=== PATIENT | female | born 1940 | race Caucasian/White ===

== ENCOUNTER 2017-03-02 15:07 | Outpatient (CLI) | payer MEDICARE, OTHER ==
[2017-03-02 11:46] LABS: BASOPHILS 0.1 % (0-2); EOSINOPHILS 0.1 % (0-7); HEMATOCRIT 38.2 % (36.0-48.0); HEMOGLOBIN 12.9 g/dL (12-16); IMMATURE GRANULOCYTES 0.5 % (0-5); LYMPHOCYTES 12.9 % (15-50); MCH 30.9 pg (26.0-34.0); MCHC 33.8 g/dL (31.0-37.0); MCV 91.4 fL (80.0-100.0); MEAN PLATELET VOLUME 8.9 fL (7.4-10.4); MONOCYTES 5.9 % (2-11); NEUTROPHILS 80.5 % (40-80); PLATELET COUNT 690 10x3/uL (130-400); RBC 4.18 10x6/uL (4.00-5.40); RDW 12.5 % (11.5-14.5); WBC 14.9 10x3/uL (4.8-10.8)
[2017-03-02 12:09] LABS: ALBUMIN 3.4 g/dL (3.4-5.0); ANION GAP 19.7 mmol/L (8-16); BILIRUBIN - TOTAL 0.68 mg/dL (0.2-1.3); CALCIUM 10.2 mg/dL (8.5-10.1); CARBON DIOXIDE 21.5 mmol/L (21.0-32.0); CREATININE - SERUM 1.4 mg/dL (0.6-1.3); MAGNESIUM - SERUM 1.9 mg/dL (1.8-2.4); POTASSIUM - SERUM 4.2 mmol/L (3.5-5.1); PROTEIN - SERUM 8.2 g/dL (6.4-8.2)
[2017-03-02 12:15] LABS: APPEARANCE HAZY (CLEAR); COLOR DK YELLOW (YELLOW); LEUKOCYTE ESTERASE TRACE (NEGATIVE); NITRITE NEGATIVE (NEGATIVE); SPECIFIC GRAVITY 1.025 (1.005-1.020)
[2017-03-02 12:16] LABS: BACTERIA FEW /hpf (NONE SEEN); BILIRUBIN NEGATIVE (NEGATIVE); EPITHELIAL CELLS RARE /hpf (0-5); GLUCOSE NEGATIVE (NEGATIVE); KETONE NEGATIVE (NEGATIVE); PROTEIN TRACE mg/dL (NEGATIVE); RED CELLS - URINE 0-5 /hpf (0-5); UROBILINOGEN NORMAL (NORMAL); WHITE CELLS - URINE 0-5 /hpf (0-5)
[2017-03-02 12:19] LABS: GRANULAR CAST RARE /lpf (NONE SEEN); HYALINE CAST OCC /lpf (NONE SEEN)
--- NOTE | 2017-03-02 16:40 | NUR ---
PATIENT VERY UNHAPPY ABOUT PLAN TO GET AN ENEMA, STATES DID NOT KNOW WHAT GETTING AN ENEMA WAS UNTIL HER EXPLAINED IT TO HER A FEW MINUTES AGO. IS HESITANTLY AGREEABLE TO THE PROCEDURE. SOAP SUDS ENEMA GIVEN, PATIENT TAKES SMALL AMOUNT AND IS UNABLE TO HOLD MUCH IN AND QUICKLY EXPELS IT ON TOILET WITH SMALL AMOUNT SOFT STOOL
[2017-03-02 16:45] VITALS: BP 116/65; Ht 144.8 cm
[2017-03-02] MEDS ORDERED: TRESIBA FL100 UNIT/1 SC (16:48)
[2017-03-02] MEDS ORDERED: GLIMEPIRIDE4 MG PO (16:48)
[2017-03-02] MEDS ORDERED: NOVOLOG100 U/M1 SC (16:48)
[2017-03-02] MEDS ORDERED: DITROPAN X5 MG/BOTTL PO (16:49)
[2017-03-02] MEDS ORDERED: LOPID600 MG PO (16:50)
[2017-03-02] MEDS ORDERED: CYMBALTA60 MG PO (16:50)
[2017-03-02] MEDS ORDERED: ZETIA10 MG PO (16:50)
[2017-03-02] MEDS ORDERED: ULORIC40 MG PO ×2 (16:51→17:00)
[2017-03-02] MEDS ORDERED: NEURONTIN 400400 MG PO (17:00)
[2017-03-02] MEDS ORDERED: VASOTEC10 MG PO (17:11)
[2017-03-02] MEDS ORDERED: LIPITOR20 MG PO (17:12)
[2017-03-02] MEDS ORDERED: JANUVIA100 MG PO (17:12)
[2017-03-02] MEDS ORDERED: HYDROCODON-ACE1 EAC6 PO (17:13)
--- NOTE | 2017-03-02 17:45 | NUR ---
PATIENT HAS ALLOWED ONLY SMALL AMOUNTS OF ENEMA AT A TIME AND HAS HAD FREQUENT SMALL AMOUNTS OF SOFT STOOLS AT A TIME AND HAS HAD A TOTAL OF A MODERATE SIZED BOWEL MOVEMENT. PATIENT AGREEABLE TO ONE MORE ROUND OF SMALL AMOUNT OF ENEMA, PATIENT HOLDS THIS ONE IN FOR APPROX 5 MINUTES BEFORE WALKING TO BATHROOM AND RELEASING CLEAR YELLOW LIQUID WITH MINIMAL SMALL FLECKS. RIGHT AC PIV DC'D WITH TIP INTACT. ABDOMEN SOFT AND LESS DISTENDED. SPOUSE REPORTS THAT PATIENT ALWAYS HAS A SLIGHTLY DISTENDED ABDOMEN
--- NOTE | 2017-03-02 18:00 | NUR ---
PATIENT WHEELED TO EMERGENCY ENTRANCE TO MEET SPOUSE'S CAR, PATIENT DISCHARGED HOME WITH DC INSTRUCTIONS, PATIENT EXPRESSES APPRECIATION FOR CARE
== END 2017-03-02 18:00 | disposition home or self-care (01) ==
LOC: D.ER 15:07
PROVIDERS: Emergency Medicine
DX: R10.9 Unspecified abdominal pain (principal); K59.00 Constipation, unspecified; Z01.812 Encounter for preprocedural laboratory examination

== ENCOUNTER 2017-03-17 10:37 | Inpatient (IN) | payer MEDICARE, OTHER ==
[~2017-03-17] VITALS: Ht 144.8 cm; Wt 60.3 kg
[~2017-03-17 10:37] MED LIST: CYMBALTA60 MG PO; DITROPAN X5 MG/BOTTL PO; GLIMEPIRIDE4 MG PO; HYDROCODON-ACE1 EAC6 PO; JANUVIA100 MG PO; LIPITOR20 MG PO; LOPID600 MG PO; NEURONTIN 400400 MG PO; NOVOLOG100 U/M1 SC; TRESIBA FL100 UNIT/1 SC; ULORIC40 MG PO; VASOTEC10 MG PO; ZETIA10 MG PO
[2017-03-17 11:29] LABS: BASOPHILS 0.2 % (0-2); EOSINOPHILS 0.3 % (0-7); HEMATOCRIT 35.5 % (36.0-48.0); HEMOGLOBIN 11.3 g/dL (12-16); IMMATURE GRANULOCYTES 0.3 % (0-5); LYMPHOCYTES 8.8 % (15-50); MCHC 31.8 g/dL (31.0-37.0); MCV 94.2 fL (80.0-100.0); MEAN PLATELET VOLUME 8.7 fL (7.4-10.4); MONOCYTES 5.3 % (2-11); NEUTROPHILS 85.1 % (40-80); PLATELET COUNT 530 10x3/uL (130-400); RBC 3.77 10x6/uL (4.00-5.40); RDW 12.9 % (11.5-14.5); WBC 12.8 10x3/uL (4.8-10.8)
[2017-03-17 11:56] LABS: ALBUMIN 2.6 g/dL (3.4-5.0); BILIRUBIN - TOTAL 0.57 mg/dL (0.2-1.3); CALCIUM 8.9 mg/dL (8.5-10.1); CARBON DIOXIDE 28.5 mmol/L (21.0-32.0); CREATININE - SERUM 1.3 mg/dL (0.6-1.3); POTASSIUM - SERUM 4.5 mmol/L (3.5-5.1)
[2017-03-17 15:34] LABS: APPEARANCE HAZY (CLEAR); BILIRUBIN NEGATIVE (NEGATIVE); COLOR YELLOW (YELLOW); GLUCOSE NEGATIVE (NEGATIVE); KETONE NEGATIVE (NEGATIVE); LEUKOCYTE ESTERASE 2+ (NEGATIVE); NITRITE NEGATIVE (NEGATIVE); PROTEIN TRACE mg/dL (NEGATIVE); UROBILINOGEN NORMAL (NORMAL)
[2017-03-17 15:36] LABS: BACTERIA MANY /hpf (NONE SEEN); EPITHELIAL CELLS 0-5 /hpf (0-5); RED CELLS - URINE 0-5 /hpf (0-5)
[2017-03-17 22:54] VITALS: BP 129/66; BMI 28.8
--- NOTE | 2017-03-17 22:54 | NUR ---
ASSESSMENT PER ADMIT PACKET. SR UP X2 CALL LIGHT WITHIN REACH.
[2017-03-18 04:00] VITALS: BP 133/64
[2017-03-18 07:08] LABS: BASOPHILS 0.2 % (0-2); EOSINOPHILS 0.7 % (0-7); HEMATOCRIT 34.3 % (36.0-48.0); HEMOGLOBIN 10.8 g/dL (12-16); IMMATURE GRANULOCYTES 0.3 % (0-5); LYMPHOCYTES 17.9 % (15-50); MCH 29.5 pg (26.0-34.0); MCHC 31.5 g/dL (31.0-37.0); MCV 93.7 fL (80.0-100.0); MEAN PLATELET VOLUME 8.9 fL (7.4-10.4); MONOCYTES 9.8 % (2-11); NEUTROPHILS 71.1 % (40-80); PLATELET COUNT 595 10x3/uL (130-400); RBC 3.66 10x6/uL (4.00-5.40); RDW 13.1 % (11.5-14.5); WBC 10.6 10x3/uL (4.8-10.8)
[2017-03-18 07:24] LABS: % SATURATION 17 % (15-55); IRON 30 ug/dl (35-150); TOTAL IRON BIND CAPACITY 172 ug/dl (260-445); UNSAT IRON BIND CAPACITY 142 ug/dl (150-375)
--- NOTE | 2017-03-18 08:26 | NUR ---
PT AOX4 RESP EVEN AND NONLABORED PT AGITATED AT THIS TIME. WITH PAIN OF 10 IN HEAD. SRX2 BED AT LOWEST SETTING CALL LIGHT WITHIN REACH WILL CONTINUE TO MONITOR
[2017-03-18 08:44] VITALS: BP 106/51
[2017-03-18 09:29] LABS: ANION GAP 15.4 mmol/L (8-16); CALCIUM 9.3 mg/dL (8.5-10.1); CARBON DIOXIDE 26.2 mmol/L (21.0-32.0); CREATININE - SERUM 1.2 mg/dL (0.6-1.3); POTASSIUM - SERUM 4.6 mmol/L (3.5-5.1)
[2017-03-18 10:38] LABS: APTT 36.5 SECONDS (22.8-39.4); INR 1.1 (0.85-1.17); PROTIME 14.1 SECONDS (11.6-15.0)
[2017-03-18 15:04] VITALS: Ht 144.8 cm; Wt 60.3 kg
[2017-03-18 16:23] LABS: PROTEIN - BODY FLUID 4.9 G/DL
--- NOTE | 2017-03-18 16:31 | NUR ---
Patient Name: TSERING WALLACE Admission Status: ER Accout number: [id number] Admission Date: 03-17-2017 : 1940 Admission Diagnosis: Attending: SAROJ Current LOS: 1 Anticipated DC Date: 03-21-2017 Planned Disposition: Home Primary Insurance: [facility] Discharge Planning Comments: CM MET WITH PATIENTS SPOUSE (JAI) REGARDING D/C NEEDS AND PLANS. PATIENT WAS ASLEEP FROM A PROCEDURE. SPOUSE STATED THERE ARE NO STEPS OR STAIRS AT THERE HOME. PATIENT IS INDEPENDENT AT HOME AND HAS A ROLATOR WALKER, WHEELCHAIR, CANE, AND GLUCOMETER (CHECKS 3XDAY). PATIENTS PCP IS DR. RÍOS AND PHARMACY IS [facility]. PATIENTS SPOUSE WANTS TO THINK ABOUT HOME HEALTH AND TALK IT OVER WITH THE DOCTOR TO SEE IF HE THINKS IT IS NEEDED. CM WILL CONTINUE TO FOLLOW PATIENT WITH D/C NEEDS AND PLANS. PCP DR. RÍOS [facility]- [phone] JAI MOISE (SPOUSE)- [phone] Teaching Supervisor: Erika Gutierrez Is the patient Alert and Oriented? Yes 0 * How many steps to enter\exit or inside your home? NONE 0 * PCP DR. RÍOS 0 * [facility] * Preadmission Environment Home with Family 0 * ADLs Independent 0 * Equipment Cane Glucometer Rolling Walker Wheelchair 0 * List name and contact numbers for known caregivers / representatives who currently or will assist patient after discharge: JAI MOISE (SPOUSE) [phone] 0 * Community resources currently utilized None 0 * Additional services required to return to the preadmission environment? Yes 0 * Can the patient safely return to the preadmission environment? Yes 0 * Has this patient been hospitalized within the prior 30 days at any hospital? No 0 Grand Total: 0
[2017-03-18 17:54] LABS: LYMPH - BF 24 %; MACROPHAGES BF 38 %; MESOTHELIALS BF 5 %; NEUT - BF 33 %
[2017-03-18 20:00] VITALS: BP 125/60
--- NOTE | 2017-03-18 20:36 | NUR ---
AWAKE,BUT DROWSY. NO COMPLIANTS VOICED. IV INFUSING TO RAC WIHTOUT REDNESS OR EDEMA NOTED. DRESSING TO RIGHT ABD DRY/INTACT WIHTOUT DRAINAGE NOTED. CL IN REACH. AT BEDSIDE
[2017-03-19] VITALS (7 sets, daily range): BP systolic 100–139; BP diastolic 45–81
--- NOTE | 2017-03-19 00:31 | NUR ---
RESTING QUIETLY. NO DISTRESS NOTED. HASBAND REMAINS AT BEDSIDE
--- NOTE | 2017-03-19 06:02 | NUR ---
AWAKE,ALERT,COMPLAINTS OF ABD PAIN. NORCO GIVEN PER REQUEST.REFUSED LAB TO BE DRAWN. AT BEDSIDE
--- NOTE | 2017-03-19 07:51 | NUR ---
PT AOX4 RESP EVEN AND NONLABORED IV TO RIGHT AC PATENT AND INTACT PT DENIES NEEDS AT THIS TIME SRX2 BED AT LOWEST POSITION WILL CONTINUE TO MONITOR CALL LIGHT WITHIN REACH
[2017-03-19 09:18] LABS: ALPHA FETOPROTEIN -(TUMOR MRK) 1.9 ng/mL (0.0-8.3); CEA 1.3 ng/mL (0.0-4.7); HEPATITIS C ANTIBODY <0.1 (0.0-0.9)
[2017-03-19 10:39] LABS: BASOPHILS 0.2 % (0-2); EOSINOPHILS 0.6 % (0-7); HEMATOCRIT 29.5 % (36.0-48.0); HEMOGLOBIN 9.5 g/dL (12-16); IMMATURE GRANULOCYTES 0.4 % (0-5); MCH 30.1 pg (26.0-34.0); MCHC 32.2 g/dL (31.0-37.0); MCV 93.4 fL (80.0-100.0); MEAN PLATELET VOLUME 8.8 fL (7.4-10.4); MONOCYTES 9.2 % (2-11); NEUTROPHILS 77.6 % (40-80); PLATELET COUNT 593 10x3/uL (130-400); RBC 3.16 10x6/uL (4.00-5.40)
[2017-03-19 10:54] LABS: INR 1.07 (0.85-1.17); PROTIME 13.8 SECONDS (11.6-15.0)
[2017-03-19 10:55] LABS: ALBUMIN 2.2 g/dL (3.4-5.0); ANION GAP 11.7 mmol/L (8-16); APTT 33.4 SECONDS (22.8-39.4); BILIRUBIN - DIRECT 0.2 mg/dL (0.00-0.30); BILIRUBIN - TOTAL 0.76 mg/dL (0.2-1.3); CALCIUM 8.5 mg/dL (8.5-10.1); CARBON DIOXIDE 26.4 mmol/L (21.0-32.0); CHOL - HDL RATIO 4.5 ratio (2.3-4.1); LDL-HDL RATIO 2.7 ratio (1.5-3.5); POTASSIUM - SERUM 4.1 mmol/L (3.5-5.1); PRE-ALBUMIN 15.9 mg/dL (18.0-35.7); PROTEIN - SERUM 6.1 g/dL (6.4-8.2)
[2017-03-19 11:19] LABS: ANA REFLEX - DIRECT Negative (Negative)
--- NOTE | 2017-03-19 19:38 | NUR ---
PT LYING IN BED WITH EYES CLOSED, RESP WITH EASE, EASILY AROUSED, ASSESSMENT COMPLETED, NO ACUTE DISTRESS NOTED, SPOUSE IN ROOM, BED LOW, ALARM ON, SR'S UP, CL IN REACH, WILL MONITOR
--- NOTE | 2017-03-19 21:52 | NUR ---
MEDS GIVEN PER MAR, REFUSED ANUSOL, ATIVAN GIVEN FOR ANXIETY PER JAN, DISHA WELL, SPOUSE AT BEDSIDE, SR'S UP, CL IN REACH
--- NOTE | 2017-03-19 23:40 | NUR ---
CONTINUES TO REST WITH EYES CLOSED, RESP WITH EASE, SPOUSE RESTING AT BEDSIDE, FALL PRECAUTIONS IN PLACE, CL IN REACH
--- NOTE | 2017-03-20 01:33 | NUR ---
ASSISTED TO BSC AND BACK TO BED WITH NO PROBLEMS, DENIES OTHER NEEDS AT THIS TIME, SAFETY MEASURES IN PLACE, CL IN REACH
[2017-03-20 03:55] VITALS: BP 100/56
--- NOTE | 2017-03-20 07:00 | NUR ---
REPORT REC'D FROM MADINA ORTIZ. RESTING IN BED WITH AT BEDSIDE. AAOX4. REGULAR HEART RATE AND RHYTHM. LUNG SOUNDS CLEAR AND EQUAL BILAT. ABD DISTENDED, BOWEL SOUNDS HYPOACTIVE X4 QUADRANTS, FIRM. +2 PEDAL PULSES. PIV TO R FOREARM FREE OF REDDNESS AND SWELLING. NO COMPLAINTS OF PAIN. BED LOW, CALL LIGHT IN REACH, DENIES NEEDS. CPOC.
[2017-03-20 07:23] LABS: BASOPHILS 0.1 % (0-2); EOSINOPHILS 0.8 % (0-7); HEMATOCRIT 29.9 % (36.0-48.0); HEMOGLOBIN 9.5 g/dL (12-16); IMMATURE GRANULOCYTES 0.3 % (0-5); LYMPHOCYTES 15.4 % (15-50); MCH 29.8 pg (26.0-34.0); MCHC 31.8 g/dL (31.0-37.0); MCV 93.7 fL (80.0-100.0); MEAN PLATELET VOLUME 8.7 fL (7.4-10.4); MONOCYTES 8.5 % (2-11); NEUTROPHILS 74.9 % (40-80); PLATELET COUNT 504 10x3/uL (130-400); RBC 3.19 10x6/uL (4.00-5.40); RDW 12.9 % (11.5-14.5)
[2017-03-20 07:24] LABS: WBC 7.7 10x3/uL (4.8-10.8)
[2017-03-20 08:05] LABS: ANION GAP 7.9 mmol/L (8-16); BILIRUBIN - TOTAL 0.48 mg/dL (0.2-1.3); CALCIUM 8.1 mg/dL (8.5-10.1); CARBON DIOXIDE 26.1 mmol/L (21.0-32.0); CREATININE - SERUM 1.1 mg/dL (0.6-1.3); PROTEIN - SERUM 5.8 g/dL (6.4-8.2)
[2017-03-20 08:19] LABS: FOLATE (FOLIC ACID) - SERUM >20.0 ng/mL (>3.0)
[2017-03-20 08:53] VITALS: BP 109/62
[2017-03-20 09:13] LABS: CA 19-9 83 U/mL (0-35)
--- NOTE | 2017-03-20 09:45 | NUR ---
MORNING MEDS PASSED AT THIS TIME. PRN ATIVAN ADMINISTERED DUE TO PT COMPLAINTS OF FEELING ANXIOUS. WILL REASSESS. ASSISTED PT TO BSC. APPROXIMATELY 500 CC'S VOIDED. COMPLETE LINEN CHANGE PROVIDED. ASSISTED BACK TO BED. BED LOW, CALL LIGHT IN REACH, DENIES NEEDS. CPOC.
--- NOTE | 2017-03-20 11:00 | NUR ---
PATIENT ALERT IN BED. RESPIRATIONS EVEN AND UNLABORED. FAMILY AT BEDSIDE. SIDE RAILS UP X2. BED IN LOW POSITION. CALL LIGHT IN REACH.
[2017-03-20 11:04] VITALS: BP 156/84
--- NOTE | 2017-03-20 11:53 | NUR ---
CURRENT FSBS 241. INSULIN ADMINISTERED PER SS TO ABD. BED LOW, CALL LIGHT IN REACH, DENIES NEEDS. CPOC.
--- NOTE | 2017-03-20 14:20 | NUR ---
PRN PAIN MEDICATION ADMINISTERED PER PT COMPLAINTS OF 5/10 BACK PAIN. WILL REASSES. RESTING IN BED WITH AT BEDSIDE. BED LOW, CALL LIGHT IN REACH, DENIES NEEDS. CPOC.
[2017-03-20 15:22] VITALS: BP 120/59
--- NOTE | 2017-03-20 17:15 | NUR ---
CURRENT FSBS 225. 4 UNITS OF INSULIN ADMINISTERED PER SS.
[2017-03-20 20:00] VITALS: BP 106/42
--- NOTE | 2017-03-20 20:10 | NUR ---
PT LYING IN BED WITH EYES CLOSED, EASILY AROUSED, ASSESSMENT COMPLETED, NO ACUTE DISTRESS NOTED, DENIES PAIN OR NEEDS, SR'S UP, BED ALARM ON, CL IN REACH, SPOUSE AT BEDSIDE, WILL CONTINUE TO MONITOR
--- NOTE | 2017-03-20 21:38 | NUR ---
MEDS GIVEN PER MAR, DISHA WELL, DENIES NEEDS, SPOUSE IN ROOM, CL IN REACH
--- NOTE | 2017-03-20 23:38 | NUR ---
RESTING WITH EYES CLOSED, RESP WITH EASE, NO ACUTE DISTRESS NOTED, SR'S UP, ALARM ON, SPOUSE AT BEDSIDE, CL IN REACH
--- NOTE | 2017-03-21 01:17 | NUR ---
CONTINUES TO REST WITH EYES CLOSED, FALL PRECAUTIONS IN PLACE, CL IN REACH
[2017-03-21 04:00] VITALS: BP 110/52
--- NOTE | 2017-03-21 08:03 | NUR ---
AWAKE AND ALERT AT THIS TIME. RESPIRATIONS EVEN AND NON LABORED. AT BEDSIDE. DENIES NEEDS AT THIS TIME. CALL LIGHT IN REACH, WILL CONTINUE WITH PLAN OF CARE.
--- NOTE | 2017-03-21 08:05 | NUR ---
SLEEPING AT THIS TIME. POSITIONED ON LEFT SIDE. REMAINS IN ISOLATION. DOOR OPEN AND CALL LIGHT IN REACH, WILL CONTINUE WITH PLAN OF CARE.
[2017-03-21 12:12] VITALS: BP 147/68
[2017-03-21 16:44] VITALS: BP 140/66
--- NOTE | 2017-03-21 18:01 | NUR ---
DENIES NEEDS, AT BEDSIDE, DRESSING FROM PERACENTISIS CHANGED, BED LOWEST POSITION, CALL LIGHT IN REACH, WILL CONTINUE TO MONITOR
[2017-03-21 19:00] VITALS: BP 116/60
--- NOTE | 2017-03-21 19:18 | NUR ---
ASSESSMENT COMPLETED, NO ACUTE DISTRESS NOTED, DENIES NEEDS AT THIS TIME, IV INFUSING, SR'S UP, ALARM ON, CL IN REACH, SPOUSE AT BEDSIDE, WILL MONITOR
--- NOTE | 2017-03-21 21:05 | NUR ---
MEDS GIVEN PER MAR, DISHA WELL, DENIES NEEDS, SR'S UP, ALARM ON, SPOUSE AT BEDSIDE, CL IN REACH
--- NOTE | 2017-03-21 23:18 | NUR ---
RESTING WITH EYES CLOSED, RESP WITH EASE, NO DISTRESS NOTED, SPOUSE IN RECLINER, SR'S UP, ALARM ON, CL IN REACH
--- NOTE | 2017-03-22 05:43 | NUR ---
2 UNIT INSULIN GIVEN PER SLIDING SCALE FOR BS OF 199, PRN ATIVAN GIVEN PER REQUEST FOR ANXIETY ALONG WITH ROUTINE MEDS, DISHA WELL, SAFETY MEASURES IN PLACE, CL IN REACH
[2017-03-22 07:59] VITALS: BP 124/69
[2017-03-22] MEDS ORDERED: ALDACTONE100 MG PO (08:01)
[2017-03-22] MEDS ORDERED: LEVAQUIN250 MG PO (08:04)
[2017-03-22 08:09] LABS: HELICOBACTER PYLORI IGM AB 11.7 units (0.0-8.9)
--- NOTE | 2017-03-22 08:09 | NUR ---
PT AOX4 RESP EVEN AND NONLABORED IV TO RIGHT FOREARM PATENT AND INTACT PT DENIES PAIN AT THIS TIME. SRX2 CALL LIGHT WITHIN REACH BED AT LOWEST SETTING WILL CONTINUE TO MONITOR
[2017-03-22 09:09] LABS: ANA REFLEX - DIRECT Negative (Negative)
--- NOTE | 2017-03-22 10:33 | NUR ---
03/22/2017 10:31 DCP: Discharge Planning Patient Name: TSERING WALLACE Encounter No: [id number] : 1940 Primary Insurance: [facility] Anticipated DC Date: 03-21-2017 Planned Disposition: Home External Planned Provider: Claire @ [facility] DCP follow-up note: DC order rec'd. Met with patient & spouse. Patient is agreeable to home health services. THEODORE signed for [facility]. Referral faxed. No other needs identified or verbalized at this time. Anticipate dc this afternoon. Brandi Poole
--- NOTE | 2017-03-22 10:33 | NUR ---
IV TO LEFT FOREARM DISCONTINUED WITH CATHETER INTACT AT THIS TIME PT AND SPOUSE GIVEN DISCHARGE INSTRUCTIONS AT THIS TIME
--- NOTE | 2017-03-22 10:50 | NUR ---
PT TRANSFERRED VIA WHEELCHAIR VIA PRIVATE VEHICLE AT THIS TIME
[2017-03-22 14:15] LABS: MITOCHONDRIAL ANTIBODY 3.2 Units (0.0-20.0); SMOOTH MUSCLE ABS (ACTIN) 3 Units (0-19)
[2017-03-22 15:19] LABS: EBV - EARLY ANTIGEN AB IGG 14.9 U/mL (0.0-8.9); EBV VIRAL CAPSID AB IGG 44.4 U/mL (0.0-17.9); EBV VIRAL CAPSID AB IGM <36.0 U/mL (0.0-35.9)
== END 2017-03-22 10:50 | disposition home health service (06) | DRG 433 ==
LOC: D.ER 10:37 → D.MS 18:13 → D.SDCHOLD 18:13 → D.MS 19:23
PROVIDERS: Emergency Medicine; General Practice; Internal Medicine Gastroenterology; ADMIT Family Medicine
PROC: 0W9G3ZZ Drainage of Peritoneal Cavity, Percutaneous Approach (ICD-10-PCS; principal; 2017-03-18 14:40)
PROC: 0FB13ZX Excision of Right Lobe Liver, Percutaneous Approach, Diagnostic (ICD-10-PCS; 2017-03-18 14:40)
DX: K74.60 Unspecified cirrhosis of liver (principal); R18.8 Other ascites; R64 Cachexia; Z79.4 Long term (current) use of insulin; N18.9 Chronic kidney disease, unspecified; E78.5 Hyperlipidemia, unspecified; K21.9 Gastro-esophageal reflux disease without esophagitis; B96.89 Other specified bacterial agents as the cause of diseases classified elsewhere; K75.9 Inflammatory liver disease, unspecified; Z68.28 Body mass index [BMI] 28.0-28.9, adult; E11.649 Type 2 diabetes mellitus with hypoglycemia without coma

== ENCOUNTER → 2017-04-01 07:19 | Outpatient (CLI) | payer MEDICARE ==
[2017-03-18 15:04] VITALS: BMI 28.8
[~2017-04-01 07:19] MED LIST changes: +ALDACTONE100 MG PO; +GEMFIBROZIL600 MG PO; +LEVAQUIN250 MG PO
== END | disposition home or self-care (01) ==
LOC: D.US 03-31 08:00
DX: N83.9 Noninflammatory disorder of ovary, fallopian tube and broad ligament, unspecified (principal)

== ENCOUNTER 2017-04-01 15:01 | Inpatient (IN) | payer MEDICARE ==
[~2017-04-01] VITALS: Ht 144.8 cm; Wt 79.2 kg
[~2017-04-01 15:01] MED LIST changes: -GEMFIBROZIL600 MG PO
[2017-04-01 16:57] LABS: BASOPHILS 0.2 % (0-2); EOSINOPHILS 0.2 % (0-7); HEMATOCRIT 32.4 % (36.0-48.0); HEMOGLOBIN 10.2 g/dL (12-16); IMMATURE GRANULOCYTES 0.5 % (0-5); LYMPHOCYTES 7.3 % (15-50); MCH 28.8 pg (26.0-34.0); MCHC 31.5 g/dL (31.0-37.0); MCV 91.5 fL (80.0-100.0); MEAN PLATELET VOLUME 8.3 fL (7.4-10.4); MONOCYTES 5.7 % (2-11); NEUTROPHILS 86.1 % (40-80); RBC 3.54 10x6/uL (4.00-5.40); RDW 13.5 % (11.5-14.5); WBC 12.8 10x3/uL (4.8-10.8)
[2017-04-01 16:59] LABS: PLATELET COUNT 767 10x3/uL (130-400)
[2017-04-01 17:13] LABS: ALBUMIN 2.5 g/dL (3.4-5.0); ALKALINE PHOSPHATASE 892 U/L (46-116); ALT (SGPT) 54 U/L (10-68); CALC OSMOLALITY 290 mosm/kg (275-300); CALCIUM 10.2 mg/dL (8.5-10.1); CARBON DIOXIDE 25.6 mmol/L (21.0-32.0); CHLORIDE - SERUM 97 mmol/L (98-107); CREATININE - SERUM 2.2 mg/dL (0.6-1.3); GLUCOSE 233 mg/dL (74-106); POTASSIUM - SERUM 5.7 mmol/L (3.5-5.1); PROTEIN - SERUM 6.7 g/dL (6.4-8.2); SODIUM 135 mmol/L (136-145); UREA NITROGEN 52 mg/dL (7-18); eGFR NON AFRICAN AMERICAN 23 mL/min (90-120)
[2017-04-01 22:10] LABS: INR 1.08 (0.85-1.17); PROTIME 13.9 SECONDS (11.6-15.0)
[2017-04-01 22:11] LABS: APPEARANCE CLEAR (CLEAR); BILIRUBIN NEGATIVE (NEGATIVE); COLOR YELLOW (YELLOW); GLUCOSE NEGATIVE (NEGATIVE); KETONE SMALL mg/dL (NEGATIVE); LEUKOCYTE ESTERASE NEGATIVE (NEGATIVE); NITRITE NEGATIVE (NEGATIVE); PROTEIN TRACE mg/dL (NEGATIVE); SPECIFIC GRAVITY 1.005 (1.005-1.020); UROBILINOGEN NORMAL (NORMAL)
[2017-04-01 22:17] LABS: AMYLASE - SERUM 29 U/L (25-115); LIPASE 88 U/L (73-393); MAGNESIUM - SERUM 2.2 mg/dL (1.8-2.4)
[2017-04-01 23:05] LABS: TROPONIN-I < 0.017 ng/mL (0.000-0.060)
[2017-04-02] VITALS: BP 128/64
[2017-04-02 01:48] VITALS: BMI 29.3
[2017-04-02] MEDS ORDERED: LIPITOR20 MG PO (02:47)
[2017-04-02] MEDS ORDERED: GEMFIBROZIL600 MG PO (02:48)
--- NOTE | 2017-04-02 03:29 | NUR ---
RESTING WITH EYES CLOSED, RESPERATIOSN EVEN, NO S/S DISTRESS NOTED.
[2017-04-02 04:00] VITALS: BP 145/73
[2017-04-02 08:52] VITALS: BP 140/68
--- NOTE | 2017-04-02 11:40 | NUR ---
LYING IN BED WITH BED ALARM ON. SPOUSE AT BEDSIDE. DENIES NEEDS
[2017-04-02 13:11] VITALS: BP 119/59
[2017-04-02 15:27] VITALS: Ht 144.8 cm; Wt 79.2 kg
[2017-04-02 17:59] VITALS: BP 132/61
[2017-04-02 21:42] VITALS: BP 136/68
--- NOTE | 2017-04-02 23:03 | NUR ---
IV SITED TO LEFT FOREARM, 22 GAUGE, FIRST ATTEMPT BY DANIEL ROD RN. NS INFUSING AT 75 CC/HR. AT BED SIDE, BED LOW, CL IN REACH.
--- NOTE | 2017-04-02 23:24 | NUR ---
MORPHINE 2 MG GIVEN FOR C/O PAIN, RATES PAIN AT A 4 ON PAIN SCALE. WILL CONT TO MONITOR.
[2017-04-03] VITALS: BP 109/63; BP 116/68
[2017-04-03 04:00] VITALS: BP 132/64
[2017-04-03 06:08] LABS: BASOPHILS 0.2 % (0-2); EOSINOPHILS 1.3 % (0-7); HEMATOCRIT 27.7 % (36.0-48.0); HEMOGLOBIN 8.7 g/dL (12-16); IMMATURE GRANULOCYTES 0.5 % (0-5); LYMPHOCYTES 10.1 % (15-50); MCH 29.3 pg (26.0-34.0); MCHC 31.4 g/dL (31.0-37.0); MCV 93.3 fL (80.0-100.0); MONOCYTES 8.4 % (2-11); NEUTROPHILS 79.5 % (40-80); PLATELET COUNT 608 10x3/uL (130-400); RBC 2.97 10x6/uL (4.00-5.40); RDW 13.6 % (11.5-14.5); WBC 11.4 10x3/uL (4.8-10.8)
[2017-04-03 06:25] LABS: BILIRUBIN - TOTAL 0.4 mg/dL (0.2-1.3); CALCIUM 9.4 mg/dL (8.5-10.1); CARBON DIOXIDE 28.9 mmol/L (21.0-32.0)
[2017-04-03 06:27] LABS: ANION GAP 12.5 mmol/L (8-16); CREATININE - SERUM 1.6 mg/dL (0.6-1.3); POTASSIUM - SERUM 4.4 mmol/L (3.5-5.1)
--- NOTE | 2017-04-03 08:27 | NUR ---
RESP UL ON . AT BS. CALL LIGHT IN REACH. WILL CONT. PLAN OF CARE.
--- NOTE | 2017-04-03 08:45 | NUR ---
PT C/O PAIN TO GENERALIZED ALL OVER. REQUESTED PAIN MEDICATION GAVE 2MG MORPHINE IV. WAITING ON DR TO DISCUSS CHANGING DIET.
[2017-04-03 08:54] VITALS: BP 133/68
[2017-04-03 12:48] VITALS: BP 119/68
--- NOTE | 2017-04-03 13:04 | NUR ---
PT IN BED TALKING TO MOANING ABOUT HURTING ALL OVER. REQUESTED PAIN MEDICATION. GAVE 2MG MOPHINE IV TYO LEFT FORARM. STAYING IN ROOM.
[2017-04-03 16:00] VITALS: BP 118/69
--- NOTE | 2017-04-03 17:45 | NUR ---
PT READY FOR BED C/O PAIN ALL OVER, WANTS PAIN MEDS SO SHE CAN GO TO SLEEP. GAVE 2MG MORPHINE IV TO LEFT FORARM. AT BEDSIDE. WILL CONT TO MONITOR.
[2017-04-03 19:00] VITALS: BP 138/74
--- NOTE | 2017-04-03 21:01 | NUR ---
HS MEDS GIVEN WITH BITES OF APPLESUACE. PT ASKING FOR PAIN MEDS, MORPHINE 2 MG GIVEN IVP AT 2120, AND AT 2134 BS CHECKED, 162, COVERED PER S/S. AT BED SIDE, PTS BED LOW, CL IN REACH, WILL CONT TO MONITOR.
[2017-04-04] VITALS (7 sets, daily range): BP systolic 104–153; BP diastolic 58–82
--- NOTE | 2017-04-04 03:56 | NUR ---
RESTING WITH EYES CLOSED, RESPERATIONS EVEN, NO S/S DISTRESS NOTED.
[2017-04-04 07:00] LABS: BASOPHILS 0.2 % (0-2); EOSINOPHILS 1.7 % (0-7); HEMATOCRIT 29.3 % (36.0-48.0); HEMOGLOBIN 9.2 g/dL (12-16); IMMATURE GRANULOCYTES 0.9 % (0-5); LYMPHOCYTES 14.6 % (15-50); MCH 29.4 pg (26.0-34.0); MCHC 31.4 g/dL (31.0-37.0); MCV 93.6 fL (80.0-100.0); MEAN PLATELET VOLUME 8.1 fL (7.4-10.4); MONOCYTES 7.7 % (2-11); NEUTROPHILS 74.9 % (40-80); PLATELET COUNT 578 10x3/uL (130-400); RBC 3.13 10x6/uL (4.00-5.40); WBC 9.2 10x3/uL (4.8-10.8)
[2017-04-04 07:28] LABS: ALBUMIN 1.9 g/dL (3.4-5.0); ANION GAP 12.8 mmol/L (8-16); BILIRUBIN - TOTAL 0.36 mg/dL (0.2-1.3); CARBON DIOXIDE 25.4 mmol/L (21.0-32.0); CREATININE - SERUM 1.2 mg/dL (0.6-1.3); POTASSIUM - SERUM 4.2 mmol/L (3.5-5.1)
--- NOTE | 2017-04-04 08:28 | NUR ---
ADMINISTERED MORNING MEDICATIONS, PT C/O OF THROAT BURNING WHEN SHE SWALLOWS. PT DENIES ANY NEEDS AT THIS TIME, AT BEDSIDE, NAD NOTED, WILL CONTINUE TO MONITOR.
--- NOTE | 2017-04-04 10:37 | NUR ---
ADMINISTERED 2MG OF MORPHINE FOR PAIN LEVEL OF 9/10, SPEECH THERAPIST AT BEDSIDE TO DO SWALLOW EVAL, NAD NOTED, CALL LIGHT IN REACH, AT BEDSIDE, NAD NOTED, WILL CONTINUE TO MONITOR.
--- NOTE | 2017-04-04 12:58 | NUR ---
BLOOD SUGAR OF 219, 4UNIT OF HUMULIN GIVEN PER SLIDING SCALE, PT IN BED, DENIES ANY NEEDS AT THIS TIME. CALL LIGHT IN REACH, NAD NOTED, WILL CONTINUE TO MONITOR.
--- NOTE | 2017-04-04 16:25 | NUR ---
PT TRANSFERED TO CT, VIA BED, NAD NOTED.
--- NOTE | 2017-04-04 16:45 | NUR ---
PT RECEIVED BACK TO ROOM VIA BED, PT REQUESTED SOME CHOCOLATE ICE CREAM. WILL SEND MESSAGE TO KITCHEN TO BRING SOME UP. PT DENIES ANY OTHER NEEDS AT THIS TIME. CALL LIGHT IN REACH, AT BEDSIDE, NAD NOTED, WILL CONTINUE TO MONITOR.
--- NOTE | 2017-04-04 19:36 | NUR ---
RECEIVED IN BEDROO. RESTING IN BED WITH EYES CLOSED. FAMILY AT BEDSIDE. STATES PAIN IN ABDOMEN AT 10. IV INFUSING. DENIES ANY OTHER NEEDS AT THIS TIME. CALL LIGHT IN REACH
--- NOTE | 2017-04-05 00:54 | NUR ---
RESTING IN BED WITH EYES CLOSED. NO SIGNS OF DISTRESS. CALL LIGHT IN REACH
[2017-04-05 04:24] VITALS: BP 121/57
[2017-04-05 06:42] LABS: ALBUMIN 1.9 g/dL (3.4-5.0); ALKALINE PHOSPHATASE 438 U/L (46-116); ALT (SGPT) 29 U/L (10-68); CALCIUM 8.2 mg/dL (8.5-10.1); CARBON DIOXIDE 25.7 mmol/L (21.0-32.0); CHLORIDE - SERUM 106 mmol/L (98-107); GLUCOSE 166 mg/dL (74-106); POTASSIUM - SERUM 4.8 mmol/L (3.5-5.1); PROTEIN - SERUM 5.2 g/dL (6.4-8.2); SODIUM 140 mmol/L (136-145)
[2017-04-05 06:46] LABS: CALC OSMOLALITY 289 mosm/kg (275-300); CREATININE - SERUM 0.5 mg/dL (0.6-1.3); UREA NITROGEN 31 mg/dL (7-18); eGFR NON AFRICAN AMERICAN > 90 mL/min (90-120)
[2017-04-05 07:14] LABS: BASOPHILS 0.3 % (0-2); EOSINOPHILS 1.5 % (0-7); HEMATOCRIT 30.5 % (36.0-48.0); HEMOGLOBIN 9.2 g/dL (12-16); LYMPHOCYTES 12.7 % (15-50); MCHC 30.2 g/dL (31.0-37.0); MCV 96.2 fL (80.0-100.0); MEAN PLATELET VOLUME 8.1 fL (7.4-10.4); MONOCYTES 9.3 % (2-11); NEUTROPHILS 75.2 % (40-80); PLATELET COUNT 457 10x3/uL (130-400); RBC 3.17 10x6/uL (4.00-5.40); WBC 9.7 10x3/uL (4.8-10.8)
--- NOTE | 2017-04-05 07:34 | NUR ---
AM ROUNDING- RECEIVED REPORT FROM LOGISTICS SPECIALIST NURSE AMERICO. PT IS CURRENTLY SITTING UP IN BED WITH EYES OPEN RESTING. IS AT BEDSIDE. PT IS ALERT AND ORIENTED. OWENS CATHETER SEEN WITH SCANT AMOUNT OF YELLOW URINE. IV SEEN TO LEFT FOREARM WITH NS RUNNING AT 75CC. ON ROOM AIR. NO MONITOR. NO NEED AT CURRENT TIME. WILL CONTINUE TO MONITOR AND CONTINUE WITH PLAN OF CARE.
[2017-04-05 08:09] VITALS: BP 113/68
[2017-04-05 11:38] VITALS: BP 121/72
[2017-04-05 15:55] VITALS: BP 105/50
--- NOTE | 2017-04-05 17:58 | NUR ---
PT IS LAYING IN BED ON BACK WITH EYES OPEN RESTING. IS AT BEDSIDE. PT DENIES ANY NEED AT CURRENT TIME. WILL CONTINUE TO MONITOR.
--- NOTE | 2017-04-05 19:34 | NUR ---
SHIFT ASSESSMENT COMPLETE. LUNG SOUNDS ARE DIMINISHED ALL LOBES WITH SKIN WARM AND DRY TO TOUCH. IV TO THE L/ARM WITH NS INFUSING ON PUMP AT 75 ABDOMEN IS DISTENDED AND TAUT.OWENS CATH TO BEDSIDE COLLECTION WITH CONCENTRATED URINE. NO DISTRESS AT THIS TIME WITH PAIN DENIED WILL MONITOR
[2017-04-05 19:46] VITALS: BP 109/50
--- NOTE | 2017-04-05 20:25 | NUR ---
ORAL MEDICATION GIVEN DIRECTED. PAIN IS RATED AT 10 WITH REQUEST FOR MORPHINE 2 MG GIVEN DIRECTED.
--- NOTE | 2017-04-05 23:28 | NUR ---
RESTING QUIETLY WITH EYES CLOSED NO DISTRESS
[2017-04-05 23:38] VITALS: BP 131/66
--- NOTE | 2017-04-06 02:44 | NUR ---
ANSWERED CALL TO ROOM WITH NEEDS PROVIDED. PAIN IS DENIED
[2017-04-06 03:48] VITALS: BP 122/68
[2017-04-06 05:25] LABS: BASOPHILS 0.4 % (0-2); EOSINOPHILS 2.7 % (0-7); HEMATOCRIT 28.6 % (36.0-48.0); HEMOGLOBIN 8.9 g/dL (12-16); IMMATURE GRANULOCYTES 1.2 % (0-5); LYMPHOCYTES 14.3 % (15-50); MCH 29.1 pg (26.0-34.0); MCHC 31.1 g/dL (31.0-37.0); MEAN PLATELET VOLUME 8.2 fL (7.4-10.4); MONOCYTES 10.1 % (2-11); NEUTROPHILS 71.3 % (40-80); PLATELET COUNT 509 10x3/uL (130-400); RBC 3.06 10x6/uL (4.00-5.40); RDW 13.9 % (11.5-14.5); WBC 8.6 10x3/uL (4.8-10.8)
[2017-04-06 05:27] LABS: MCV 93.5 fL (80.0-100.0)
[2017-04-06 05:55] LABS: ALBUMIN 1.8 g/dL (3.4-5.0); ANION GAP 9.8 mmol/L (8-16); BILIRUBIN - TOTAL 0.44 mg/dL (0.2-1.3); CALCIUM 8.3 mg/dL (8.5-10.1); CARBON DIOXIDE 27.2 mmol/L (21.0-32.0); PROTEIN - SERUM 5.4 g/dL (6.4-8.2)
--- NOTE | 2017-04-06 07:22 | NUR ---
AM ROUNDS- PT IN BED, PT STATES THAT THE CARAFATE THAT SHE IS GETTING IS BURNING HER THROAT. PT DENIES ANY OTHER NEEDS AT THIS TIME. AT BEDSIDE, CALL LIGHT IN REACH, NAD NOTED, WILL CONTINUE TO MONITOR.
[2017-04-06 07:42] VITALS: BP 133/66
--- NOTE | 2017-04-06 08:36 | NUR ---
ADMINISTERED LEVAQUIN ORDER, AND 2MG OF MORPHINE FOR PAIN LEVEL OF 10/10. PT REFUSED TO TAKE ALL OTHER PO MEDS. STATED " IT JUST HURTS TO BAD TO SWALLOW." ALSO STATED THAT SHE DOES NOT WANT TO TAKE THE CARAFATE BECAUSE IT MAKES IT WORSE. PT DENIES ANY OTHER NEEDS AT THIS TIME. AT BEDSIDE, NAD NOTED, WILL CONTINUE TO MONITOR.
--- NOTE | 2017-04-06 11:51 | NUR ---
BLOOD SUGAR OF 193, 2 UNITS OF HUMULIN R GIVEN PER S/S. PT REFUSED TO TAKE CARAFATE, AND WANTS TO KNOW IF SHE CAN HAVE THE NYSTATIN BEFORE HER MEALS. BECAUSE SHE BELIEVES IT HELPS MORE THAN THE CARAFATE. GINA WHITT, AT BEDSIDE, WILL CONTINUE TO MONITOR.
[2017-04-06 12:05] VITALS: BP 135/71
--- NOTE | 2017-04-06 12:49 | NUR ---
CM MET WITH PATIENT AND HER SPOUSE GEN MOISE TO ASSESS DISCHARGE PLANNING/NEEDS. PATIENT AND SPOUSE STATED THEY HOPE TO BE ABLE TO RETURN HOME WITH [facility] AND [facility]YS[facility]ERAPY, BUT STATED THE DOCTOR RECOMMENDED SHE MAY NEED REHAB. BOTH STATED THAT THE HOME ENVIRONMENT IS SAFE. STATED HER SPOUSE GEN MOISE, , WILL DRIVE HER HOME. SHE HAS A ROLLING WALKER AND CANES AT HOME. HER SPOUSE REPORTED HE JUST BOUGHT A SHOWER CHAIR AND RAILS FOR THE TUB, BUT THEY HAVE NOT HAD THE TIME TO GET THE RAILS INSTALLED. CM WILL CONTNIUE TO FOLLOW IN REGARDS TO DISCHARGE PLANNING/NEEDS. Appended by Michelle Portillo on 04/06/2017 12:49: @1200, SPOKE WITH SAHIL FROM [facility]. INFORMATION WAS REQUESTED IN ORDER TO GIVE AUTH FOR STAY. INFORMATION OBTAINED, CALLED HER BACK AT 1230, AUTH WAS GIVEN FROM ADMIT UNTIL THIS MONDAY 04/09, SHE STATED IF THE PATIENT IS STILL HERE, SHE WILL NEED UPDATED CLINICALS FROM TODAY UNTIL THEN WITH SOME PLAN FOR DISCHARGE IN THE DOCUMENTATION. SHE REQUESTED THAT IF DISCHARGED BEFORE THEN, TO PLEASE SEND DISCHARGE INFORMATION. AUTH#[id number]. HEALTH POLICY MANAGER: TALISHA PORTILLO RN Is the patient Alert and Oriented? Yes * How many steps to enter\exit or inside your home? 0 * PCP DR KERLINE RÍOS * [facility] * Preadmission Environment Home with Family * ADLs Partial Dependent * Partial ADLs (Assistance needed) Ambulation Bathing Eating Medication Management * Equipment Cane Rolling Walker Shower Chair * Other Equipment SPOUSE JUST BOUGHT RAILS FOR THE BATHTUB, BUT HAS NOT GOT THEM INSTALLED. * List name and contact numbers for known caregivers / representatives who currently or will assist patient after discharge: GEN MOISE, SPOUSE, * Additional services required to return to the preadmission environment? No * Can the patient safely return to the preadmission environment? Yes * Has this patient been hospitalized within the prior 30 days at any hospital? Yes
--- NOTE | 2017-04-06 13:04 | NUR ---
Nutrition follow-up: Diet: ADA soft with chopped meats due to sore throat PO intake very poor at this time. Labs reviewed No BM charted Wt: 176# PO intake poor; pt not meeting est nutritional needs at this time. RDN will order Glucerna Shake with meals. RDN following.
--- NOTE | 2017-04-06 13:13 | NUR ---
ADMINISTERED MORPHINE 2MG FOR PAIN LEVEL OF 6/10. PT DENIES ANY OTHER NEEDS AT THIS TIME. CALL LIGHT IN REACH, AT BEDSIDE, NAD NOTED, WILL CONTINUE TO MONITOR.
--- NOTE | 2017-04-06 14:13 | NUR ---
PT REFUSED GABAPENTIN AGAIN AT THIS TIME. SHE STATED " IT HURTS TO BAD TO SWALLOW AND IT JUST MAKES IT WORSE, I DONT WANT TO TAKE IT". PT DENIES ANY OTHER NEEDS AT THIS TIME, AT BEDSIDE, NAD NOTED, CALL LIGHT IN REACH, WILL CONTINUE TO MONITOR.
[2017-04-06 15:40] VITALS: BP 114/51
--- NOTE | 2017-04-06 16:49 | NUR ---
BLOOD SUGAR OF 224, 4 UNITS OF HUMULIN PER SLIDING SCALE.
--- NOTE | 2017-04-06 19:00 | NUR ---
ADMINISTERED 2MG OF MORPHINE FOR PAIN LEVEL OF 5/10. PT DENIES ANY OTHER NEEDS AT THIS TIME. AT BEDSIDE, CALL LIGHT IN REACH, NAD NOTED.
--- NOTE | 2017-04-06 19:42 | NUR ---
RECEIVED REPORT, PT DENIES ANY NEEDS, BED IS LOW, SRX2, IV-RFA-NS@75, OWENS- DRAINING, REFUSING SCD AT THIS TIME, CALL LIGHT IN REACH, WILL CONTINUE PLAN OF CARE
[2017-04-06 20:12] VITALS: BP 123/61
[2017-04-06 23:40] VITALS: BP 125/66
--- NOTE | 2017-04-07 00:47 | NUR ---
ASSESSMENT COMPLETE, SEE FLOWSHEET, BED IS LOW, SRX2, AT BEDSIDE, WILL CONTINUE PLAN OF CARE
[2017-04-07 03:31] VITALS: BP 133/70
[2017-04-07 06:15] LABS: BASOPHILS 0.2 % (0-2); EOSINOPHILS 2.4 % (0-7); HEMATOCRIT 30.3 % (36.0-48.0); HEMOGLOBIN 9.6 g/dL (12-16); IMMATURE GRANULOCYTES 1.3 % (0-5); LYMPHOCYTES 14.3 % (15-50); MCH 29.3 pg (26.0-34.0); MCHC 31.7 g/dL (31.0-37.0); MCV 92.4 fL (80.0-100.0); MEAN PLATELET VOLUME 8.6 fL (7.4-10.4); MONOCYTES 8.8 % (2-11); PLATELET COUNT 501 10x3/uL (130-400); RBC 3.28 10x6/uL (4.00-5.40); RDW 13.7 % (11.5-14.5); WBC 8.6 10x3/uL (4.8-10.8)
[2017-04-07 06:31] LABS: ALBUMIN 1.9 g/dL (3.4-5.0); ANION GAP 11.3 mmol/L (8-16); BILIRUBIN - TOTAL 0.6 mg/dL (0.2-1.3); CALCIUM 8.1 mg/dL (8.5-10.1); CARBON DIOXIDE 24.5 mmol/L (21.0-32.0); CREATININE - SERUM 0.9 mg/dL (0.6-1.3); POTASSIUM - SERUM 3.8 mmol/L (3.5-5.1); PROTEIN - SERUM 5.5 g/dL (6.4-8.2)
--- NOTE | 2017-04-07 07:17 | NUR ---
AM ROUNDS- PT IN BED, DENIES ANY NEEDS AT THIS TIME. CALL LIGHT IN REACH, AT BEDSIDE, NAD NOTED, WILL CONTINUE TO MONITOR.
--- NOTE | 2017-04-07 08:16 | NUR ---
ADMINISTERED MORNING MEDS EXCEPT GAPAPETIN, SINCE PT REFUSED TO TAKE IT. ALSO GAVE 4MG OF ZOFRAN FOR NAUSEA. PT DENIES ANY NEEDS AT THIS TIME. AT [facility], NAD NOTED, WILL CONTINUE TO MONITOR.
[2017-04-07 08:31] VITALS: BP 131/74
--- NOTE | 2017-04-07 10:31 | NUR ---
ADMINISTERED 2MG OF MORPHINE FOR PAIN LEVEL OF 6/10. PT DENIES ANY OTHER NEEDS AT THIS TIME. AT BEDSIDE, NAD NOTED, WILL CONTINUE TO MONITOR.
[2017-04-07 12:29] VITALS: BP 118/57
--- NOTE | 2017-04-07 12:57 | NUR ---
CALLED DR. RÍOS AND NOTIFIED HIM THAT DR. WAY ORDERED AN MRI BRAIN WITH CONTRAST, AND THAT PT STATED "THE ONLY WAY THAT I AM GOING TO HAVE THIS PROCEDURE DONE IS TO BE KNOCKED OUT". DR. RÍOS STATED THAT SHE CAN HAVE VALIUM 5MG PO 45 MIN BEFORE PROCEDURE. WILL LET PT KNOW OF NEW ORDERS.
--- NOTE | 2017-04-07 13:00 | NUR ---
NOTIFIED PT THAT DR. RÍOS SAID THAT SHE CAN HAVE 5MG OF VALIUM 45 MIN BEFORE PROCEDUR. PT STATED " VALIUM DOES NOTHING FOR ME, IT HAS NEVER WORKED. THE ONLY THING THAT WORKS FOR ME IS VERSED, ASK THE DOCTOR IF HE CAN GIVE ME THAT, BECAUSE THAT'S THE ONLY WAY THAT I AM GOING TO HAVE AN MRI DONE." WILL CALL DR. RÍOS BACK AND LET HIM KNOW. 131- CALLED DR. RÍOS AND NOTIFIED HIM ABOUT THAT PT DOES NOT WANT VALIUM SHE WANTS VERSED. DR. RÍOS STATED " I DON'T DO VERSED, SO SHE JUST HAS TO WAIT AND TALK WITH DR. WAY TOMORROW". 131- PT'S CAME UP TO [facility] AND STATED. " DR. REYNOSO SAID THAT HE IS GOING TO TREAT THE CANCER FIRST AND THEN HE WILL DO AN MRI TO CHECK THE SPOT ON THE BACK OF HER HEAD. SO SHE IS NOT TO HAVE AN MRI TODAY ONLY PORT PLACEMENT." NOTIFIED PT'S THAT MRI IS CANCELED FOR TODAY.
[2017-04-07 15:45] VITALS: BP 108/60
--- NOTE | 2017-04-07 16:16 | NUR ---
PATIENT WANTS TO BE SEDATED FOR MRI. MADINA TURNER CONTACTED HIGH HEEL BUILDER AND HE WANTS TO WAIT FOR DR. WAY TO SEE IF SEDATION IN ORDER FOR THIS PATIENT OR NOT. WILL CHECK IN AM.
--- NOTE | 2017-04-07 16:33 | NUR ---
BLOOD SUGAR OF 183. NO COVERAGE GIVEN AT THIS TIME, PT NPO. PT DENIES ANY NEEDS AT THIS TIME. AT BEDSIDE, NAD NOTED, WILL CONTINUE TO MONITOR.
--- NOTE | 2017-04-07 19:03 | NUR ---
ADMINISTERED 2MG OF MORPHINE FOR PAIN LEVEL OF 6/10, AND 4MG OF ZOFRAN FOR NUASEA. PT IN BED, DENIES ANY OTHER NEEDS AT THIS TIME. CALL LIGHT IN REACH, NAD NOTED, WILL CONTINUE TO MONITOR.
--- NOTE | 2017-04-07 19:34 | NUR ---
DR IVEY AT BED SIDE.
--- NOTE | 2017-04-07 19:39 | NUR ---
SPOKE WITH DR IVEY, CANCELLING PORT PLACEMENT FOR TONIGHT AND RESCHEDULING FOR SURGERY TO BE DONE IN THE AM.
[2017-04-07 20:00] VITALS: BP 125/65
--- NOTE | 2017-04-07 20:30 | NUR ---
HS MEDS GIVEN, PT REFUSES NEURONTIN. BS 181, COVERED PER S/S.
[2017-04-08] VITALS: BP 116/62
--- NOTE | 2017-04-08 01:49 | NUR ---
RESTING WITH EYES CLSED, RESPERATIONS EVEN, NO S/S DISTRESS NOTED.
--- NOTE | 2017-04-08 03:37 | NUR ---
BID ANALYST AT BEDSIDE TO OBTAIN VITALS, WILL CONTINUE WITH PLAN OF CARE.
[2017-04-08 04:00] VITALS: BP 125/69
--- NOTE | 2017-04-08 07:15 | NUR ---
AM ROUNDS- PT IN BED, DENIES ANY NEEDS AT THIS TIME. AT BEDSIDE, HE STATES THAT PT IS GOING FOR PORT PLACEMENT AROUND 0930. NAD NOTED, CALL LIGHT IN REACH, WILL CONTINUE TO MONITOR.
[2017-04-08 08:00] VITALS: BP 125/68
--- NOTE | 2017-04-08 08:52 | NUR ---
SURGERY NOTIFIED THAT PT DOES NOT HAVE ANY PRE-OP ORDERS.
--- NOTE | 2017-04-08 09:20 | NUR ---
PRE-OP MEDS GIVEN AT THIS TIME. EGK DONE AND WILL PLACE ON CHART. PT DENIES ANY NEEDS AT THIS TIME. AT BEDSIDE, NAD NOTED, WILL CONTINUE TO MONITOR.
--- NOTE | 2017-04-08 10:04 | NUR ---
PT TRANSFERED TO OR VIA BED, NAD NOTED.
--- NOTE | 2017-04-08 11:29 | NUR ---
CARE TRANSFERED TO KRISTI PAINTER AT 1127
--- NOTE | 2017-04-08 11:42 | NUR ---
RECIVED REPORT FROM GILMA PAINTER IN RECOVERY. STATES THAT PORT WAS PLACED TO RT UPPER CHEST, DRESSING TO SITE. STATED THAT PT DENIES PAIN AT THIS TIME. WILL BRING PT BACK SHORTLY.
[2017-04-08 11:59] VITALS: BP 125/65
[2017-04-08 12:00] VITALS: BP 125/67
--- NOTE | 2017-04-08 12:04 | NUR ---
PT TRANSFERED BACK TO ROOM, PORT PLACED TO RT CHEST. VITAL SIGNS STABLE, PT DENIES ANY PAIN AT THIS TIME. AT BEDSIDE, NAD NOTED, WILL CONTINUE TO MONITOR.
--- NOTE | 2017-04-08 12:53 | NUR ---
Nutrition follow-up: Pt now NPO for port placement PO intake of consistent CHO diet has been poor Labs reviewed Wt: 180# No BM charted If medically feasible, may need to consider nutrition support if po intake remains poor. RDN following.
--- NOTE | 2017-04-08 12:59 | NUR ---
AMMENDMENT DURING INITIAL ASSESSMENT, BY ACCIDENT, IT WAS NOTED THAT THE PATIENT RECEIVED [facility]. THIS STATMENT IS AN ERROR. THE PATIENT WAS RECEIVING [facility].
[2017-04-08 16:22] VITALS: BP 101/57
--- NOTE | 2017-04-08 16:28 | NUR ---
BLOOD SUGAR OF 282, 6 UNITS OF HUMULIN GIVEN PER S/S, TO LUQ. ALSO GAVE NYSTATIN AT THIS TIME. PT DENIES ANY NEEDS AT THIS TIME. CALL LIGHT IN REACH, AT BEDSIDE, GINA WHITT, WILL CONTINUE TO MONITOR.
--- NOTE | 2017-04-08 17:08 | NUR ---
RECEIVED CALLED FROM TALISHA IN PHARMACY. STATED THAT THE EARLIEST THE CHEMO DRUGS WOULD BE READY WOULD BE TOMORROW MORNING. WILL NOTIFY DR. REYNOSO. 1709- WENT TO TALK TO DR. REYNOSO IN MED SURG, INFOMRED HIM ABOUT INFORMATION RECEIVED FROM PHARMACY. 1754- DR. WAY NOTIFIED THIS RN THAT HE D/C PT'S FLUIDS AND ORDER FOR LASIX ONE TIME ORDER. WILL D/C FLUIDS AND GIVE LASIX.
--- NOTE | 2017-04-08 18:28 | NUR ---
ADMINISTERED 2MG OF MORPHINE FOR PAIN LEVEL OF 6/10, ALSO GAVE 40MG OF LASIX AND STOPPED FLUIDS PER DR. WAY'S ORDERS. AT BEDSIDE, CALL LIGHT IN REACH, NAD NOTED, WILL CONTINUE TO MONITOR.
--- NOTE | 2017-04-08 19:40 | NUR ---
REVIEVED PT FROM MED 2, ASSESSMENT COMLPETED, NO ACUTE DISTRESS NOTED, DENIES NEEDS AT THIS, AT BEDSIDE, SR'S UP , CL IN REACH, WILL MONITOR
--- NOTE | 2017-04-08 21:06 | NUR ---
MEDS GIVEN PER MAR, DISHA WELL, SPOUSE IN ROOM, CL IN REACH
--- NOTE | 2017-04-08 22:51 | NUR ---
MORPHINE GIVEN PER MAR FOR C/O PORT INCISION PAIN, DISHA WELL, FALL PRECAUITONS IN PLACE, CL IN REACH
--- NOTE | 2017-04-08 23:58 | NUR ---
RESTING WITH EYES CLOSED, RESP WITH EASE, NO ACUTE DISTRESS NOTED, SR'S UP, CL IN REACH
[2017-04-09 04:00] VITALS: BP 115/63
[2017-04-09 04:46] LABS: BASOPHILS 0.4 % (0-2); EOSINOPHILS 1.9 % (0-7); HEMATOCRIT 29.7 % (36.0-48.0); HEMOGLOBIN 9.4 g/dL (12-16); IMMATURE GRANULOCYTES 1.5 % (0-5); LYMPHOCYTES 16.4 % (15-50); MCH 28.9 pg (26.0-34.0); MCHC 31.6 g/dL (31.0-37.0); MCV 91.4 fL (80.0-100.0); MEAN PLATELET VOLUME 8.5 fL (7.4-10.4); MONOCYTES 9.4 % (2-11); NEUTROPHILS 70.4 % (40-80); PLATELET COUNT 461 10x3/uL (130-400); RBC 3.25 10x6/uL (4.00-5.40); RDW 14.1 % (11.5-14.5); WBC 9.5 10x3/uL (4.8-10.8)
[2017-04-09 04:47] LABS: ANION GAP 8.7 mmol/L (8-16); CALCIUM 8.1 mg/dL (8.5-10.1); CARBON DIOXIDE 26.1 mmol/L (21.0-32.0); CREATININE - SERUM 1.1 mg/dL (0.6-1.3); POTASSIUM - SERUM 3.8 mmol/L (3.5-5.1)
--- NOTE | 2017-04-09 08:02 | NUR ---
AWAKE AND ALERT. ORIENTED X3. NO C/O AT THIS TIME. REPORTS SLIGHT NAUSEA. GIVEN CRACKERS AND APPLE JUICE. WILL MONITOR. LUNGS ARE DIMINISHED WITH FAINT CRACKLES NOTED. REPORTS OCCASSIONALLY PRODUCTIVE COUGH. SKIN IS INTACT WITHOUT REDNESS. RIGHT PORT PATENT WITHOUT REDNESS AT INSERTION SITE. IV TO LEFT WRIST AREA PATENT WITHOUT REDNESS. SCD'S OFF AT THIS TIME. DENIES NEEDS. AT BEDSIDE.
[2017-04-09 08:15] VITALS: BP 113/66; BP 142/71
--- NOTE | 2017-04-09 10:00 | NUR ---
GIVEN PRE CHEMO MEDS IV. DENIES NEEDS AT THIS TIME.
--- NOTE | 2017-04-09 11:24 | NUR ---
TAXOL 150 MG IV INITIATED TO RT. CHEST IP. IP DEMONSTRATED GOOD BLOOD RETURN AND ABLE TO FLUSH WITHOUT HESITENCE PRIOR TO INFUSION. PATIENT DROWSY, AWAKENS TO VERBAL STIMULI. VS- TEMP 98.5 TEMPORAL, PULSE 110, BP 125/74, O2 SAT 97 PERCENT ON 2L PER NC, RESP 16 EVEN UNLABORED. AT BEDSIDE. EDUCATION TO PATIENT AND ABOUT CHEMO ADMINISTRATION, SPECIFIC INFORMATION RELATED TO THE NAME AND POTENTIAL SIDE EFFECTS , AND ADVERSE REACTIONS, OF CHEMO ALSO D/W. PATIENT AND VERBALIZES UNDERSTANDING. WILL CONTINUE TO MONITOR FOR S/S OF REACTION. BED LOW CL IN REACH.
--- NOTE | 2017-04-09 11:58 | NUR ---
CONT. TO TOLERATE TAXOL INFUSION WITHOUT S/S OF REACTION. WILL CONTINUE TO MONITOR. BED LOW CL IN REACH.
--- NOTE | 2017-04-09 12:00 | NUR ---
fsbs 272. given 6 units regular sub q per SS.
--- NOTE | 2017-04-09 12:59 | OP ---
PATIENT NAME: TSERING WALLACE MEDICAL RECORD: [id number] :40 LOCATION:[id number] ADMISSION DATE:04/01/17 SURGEON: KRISTIN IVEY MD DATE OF OPERATION: 04/08/2017 PREOPERATIVE DIAGNOSES: 1. Ovarian cancer. 2. Malignant ascites. 3. Edema. POSTOPERATIVE DIAGNOSIS: 1. Ovarian cancer. 2. Malignant ascites. 3. Edema. PROCEDURE: 1. Right subclavian vein PowerPort placement. 2. Fluoroscopic interpretation. SURGEON: Kristin Ivey MD OPERATIVE PROCEDURE: The patient's right chest was prepped and draped in sterile fashion. A needle was used to cannulate the right subclavian vein. The guidewire was advanced with ease. Fluoro was used to note that the wire was in good position in the venous system. A skin incision was made on the right superior lateral chest and a subcutaneous pouch was made overlying the pectoral fascia. The catheter was tunneled between this pouch and the wire exit site. The port was sutured to the pectoral fascia using interrupted 2-0 Prolenes times 2. We then cut the catheter with a beveled tip at 19 cm. The dilator trocar device was placed over the wire and the wire and dilator were removed. The catheter was advanced through the trocar with ease and the trocar was removed. The catheter resting in good position in the right atrial supra vena caval junction. The catheter aspirated nonpulsatile dark blood and flushed easily with heparinized saline. We then reapproximated the subcutaneous tissues with interrupted 3-0 Vicryl and the skin was closed with running subcutaneous 5-0 Monocryl. We then accessed the port and flushed it one last time before dressing was placed. COMPLICATIONS: None. CONDITION: Stable. ANESTHESIA: General endotracheal. BLOOD LOSS: Minimal. TRANSINT:[id number] Voice Confirmation ID: [id number] DOCUMENT ID: [id number] OPERATIVE REPORT [id number] WALLACEKRISTIN FERREIRA MD at 1259 CC: BOSTON REYNOSO MD [phone] DICTATION DATE: 04/08/17 1059 EPIDEMIOLOGY INVESTIGATOR: 04/08/17 1823 ADM IN [place] [id number] [place] [address]
--- NOTE | 2017-04-09 14:30 | NUR ---
TAXOL COMPLETE. PATIENT TOLERATED WELL.
--- NOTE | 2017-04-09 15:19 | NUR ---
CARBOPLATIN INITIATED TO RT IP . VSS. PATIENT MONITORED FOR 30 MIN . NO SS OF REACTION WILL CONT TO MONITOR.
--- NOTE | 2017-04-09 16:50 | NUR ---
CARBOPLATIN COMPLETE. PATIENT DISHA WITHOUT S/S OF REACTION.
--- NOTE | 2017-04-09 17:00 | NUR ---
FSBS 296. SUPPER SERVED IN ROOM. AT BEDSIDE. NO CHANGES NOTED.
--- NOTE | 2017-04-09 18:00 | NUR ---
REQUESTED AND GIVEN 2 MG MORPHINE SLOW IVP FOR C/O ABDOMINAL PAIN LEVEL 6. WILL MONITOR.
[2017-04-09 20:00] VITALS: BP 118/67
[2017-04-10] VITALS: BP 98/59
--- NOTE | 2017-04-10 03:00 | NUR ---
PT IS ASLEEP WITH EASY RESPIRATIONS AND NO DISTRESS NOTED. HER IS ASLEEP IN THE RECLINER BESIDE HER. THE BED IS LOW, RAILS UP X'S 2 WITH THE CALL LIGHT AT HAND.
[2017-04-10 04:00] VITALS: BP 89/61
[2017-04-10 08:18] VITALS: BP 100/54
--- NOTE | 2017-04-10 08:54 | NUR ---
SCHEDULED MEDICATIONS ADMINISTERED AT THIS TIME EXCEPT FOR BLOOD PRESSURE MEDICATION AND NEURONTIN. AT BEDSIDE. PRN MORPHINE AND ZOFRAN ADMINISTERED AT THIS TIME. CALL LIGHT IN REACH, REMAINS AT BEDSIDE. WILL CONTINUE WITH PLAN OF CARE.
[2017-04-10 09:50] LABS: BASOPHILS 0.2 % (0-2); HEMOGLOBIN 9.6 g/dL (12-16); IMMATURE GRANULOCYTES 0.9 % (0-5); LYMPHOCYTES 18.4 % (15-50); MCH 28.9 pg (26.0-34.0); MCV 90.4 fL (80.0-100.0); MEAN PLATELET VOLUME 8.9 fL (7.4-10.4); MONOCYTES 6.5 % (2-11); PLATELET COUNT 416 10x3/uL (130-400); RBC 3.32 10x6/uL (4.00-5.40); RDW 14.2 % (11.5-14.5)
[2017-04-10 09:58] LABS: ANION GAP 14.6 mmol/L (8-16); CALCIUM 7.9 mg/dL (8.5-10.1); CARBON DIOXIDE 25.1 mmol/L (21.0-32.0); CREATININE - SERUM 1.3 mg/dL (0.6-1.3); POTASSIUM - SERUM 3.7 mmol/L (3.5-5.1)
[2017-04-10 13:25] VITALS: BP 109/53
--- NOTE | 2017-04-10 14:50 | NUR ---
PT REC'D FROM [facility]AD[facility] ISBELL. RESTING IN BED WATCHING TV. AAOX4. R CHEST PORT FREE OF REDNESS AND SWELLING. PIV TO L FOREARM FREE OF REDNESS AND SWELLING WELL. OWENS CATHERTER DRAINING TO GRAVITY. NO KINKS OR LOOPS IN TUBING. BED LOW, CALL LIGHT IN REACH, DENIES NEEDS. CPOC.
[2017-04-10 16:01] VITALS: BP 93/72
--- NOTE | 2017-04-10 16:43 | NUR ---
CURRENT FSBS 267. 6 UNITS OF INSULIN ADMINISTERED PER SS. I'S AND O'S OBTAINED AT THIS TIME. BED LOW, CALL LIGHT IN REACH, DENIES NEEDS. CPOC.
[2017-04-10 20:00] VITALS: BP 100/52
[2017-04-11] VITALS: BP 108/60
--- NOTE | 2017-04-11 01:36 | NUR ---
REC'D. CHGE. OF SHIFT IN BED AT BEDSIDE IN RECLINER. BOTH EYES CLOSED RESP. DEEP AND EVEN.OWENS PATENT/DRAINING CONCENTRATED URINE.WILL CONTINUE TO MONITOR FOR ANY CHGES.AND FOLLOW CURRENT PLAN OF CARE.
--- NOTE | 2017-04-11 02:59 | NUR ---
PT IS ASLEEP WITH NO DISTRESS NOTED AND RESPIRATIONS EASY. SHE HAS A OWENS TO THE BEDSIDE. HER IS ALSO ASLEEP IN THE RECLINER. THE BED IS LOW, RAILS UP X'S 2 WITH THE CALL LIGHT AT HAND.
[2017-04-11 04:00] VITALS: BP 118/61
[2017-04-11 05:11] LABS: BASOPHILS 0.3 % (0-2); EOSINOPHILS 2.4 % (0-7); HEMATOCRIT 27.6 % (36.0-48.0); HEMOGLOBIN 8.8 g/dL (12-16); IMMATURE GRANULOCYTES 0.5 % (0-5); LYMPHOCYTES 17.8 % (15-50); MCH 29.1 pg (26.0-34.0); MCHC 31.9 g/dL (31.0-37.0); MCV 91.4 fL (80.0-100.0); MEAN PLATELET VOLUME 9.2 fL (7.4-10.4); MONOCYTES 4.2 % (2-11); NEUTROPHILS 74.8 % (40-80); PLATELET COUNT 361 10x3/uL (130-400); RBC 3.02 10x6/uL (4.00-5.40); RDW 14.3 % (11.5-14.5)
[2017-04-11 05:14] LABS: WBC 7.4 10x3/uL (4.8-10.8)
[2017-04-11 05:30] LABS: ANION GAP 10.8 mmol/L (8-16); CALCIUM 7.9 mg/dL (8.5-10.1); CREATININE - SERUM 1.1 mg/dL (0.6-1.3); POTASSIUM - SERUM 3.8 mmol/L (3.5-5.1)
--- NOTE | 2017-04-11 07:50 | NUR ---
AT BEDSIDE, DENIES NEEDS, CALL LIGHT IN REACH, BED LOWEST POSITION, WILL CONTINUE TO MONITOR
[2017-04-11 08:23] VITALS: BP 103/56
--- NOTE | 2017-04-11 10:25 | NUR ---
PT AOX4 RESP EVEN AND NONLABORED PT HERE ASCITES FOR THIS VISIT IV TO LEFT FOREARM PATENT AND INTACT PT DENIES NEEDS AT THIS TIME SRX2 BED IN LOWEST SETTING CALL LIGHT WITHIN REACH WILL CONTINUE TO MONITOR
[2017-04-11 12:55] VITALS: BP 102/53
[2017-04-11 16:14] VITALS: BP 98/50
[2017-04-11 19:00] VITALS: BP 114/50
--- NOTE | 2017-04-11 19:25 | NUR ---
RECIEVED SHIFT REPORT. PT IS LYING IN BED. ALERT AND ORIENTED AND ABLE TO VERBALIZE NEEDS. IV'S X 2 PATENT AND SALINE LOC AT THIS TIME. OWENS IS DRAINING URINE BY GRAVITY. SCD'S ON. PT DENIES ANY PAIN AT THIS TIME. PT REQUIRES MINIMAL ASSISTANCE TURNING IN BED FOR COMFORT AND SKIN CARE. NO NEEDS ARE VERBALIZED AT THIS TIME. IS AT THE BEDSIDE. WILL CONTINUE TO MONITOR. SIDE RAILS ARE UP X 2. BED IS IN LOWEST POSITION. BED ALARM IS ON FOR SAFETY. CALL LIGHT IS WITHIN REACH.
--- NOTE | 2017-04-11 20:39 | NUR ---
SHIFT ASSESSMENT COMPLETED. NIGHT MEDS GIVEN WITH NO PROBLEMS. PT RECIEVED 6 UNITS INSULIN PER SLIDING SCALE FOR YWCL=549. PT C/O NAUSEA. ADMINISTERED PRESCRIBED PRN ZOFRAN PER ORDER. DENIES FURTHER NEEDS. AT BEDSIDE. SIDE RAILS X 2. BED LOW. BED ALARM ON. CALL LIGHT IN REACH.
[2017-04-12] VITALS: BP 109/56
[2017-04-12 04:00] VITALS: BP 98/53
[2017-04-12 05:52] LABS: BASOPHILS 0.3 % (0-2); EOSINOPHILS 3.7 % (0-7); HEMATOCRIT 26.5 % (36.0-48.0); HEMOGLOBIN 8.3 g/dL (12-16); IMMATURE GRANULOCYTES 0.4 % (0-5); LYMPHOCYTES 16.4 % (15-50); MCH 28.6 pg (26.0-34.0); MCHC 31.3 g/dL (31.0-37.0); MCV 91.4 fL (80.0-100.0); MEAN PLATELET VOLUME 9.5 fL (7.4-10.4); MONOCYTES 2.3 % (2-11); NEUTROPHILS 76.9 % (40-80); PLATELET COUNT 356 10x3/uL (130-400); WBC 7.1 10x3/uL (4.8-10.8)
[2017-04-12 06:13] LABS: CARBON DIOXIDE 27.2 mmol/L (21.0-32.0); POTASSIUM - SERUM 4.2 mmol/L (3.5-5.1)
--- NOTE | 2017-04-12 07:30 | NUR ---
PT ASSESSMENT COMPLETE AWAKE AND ALERT ORIENTED X 3 FAMILY AT BEDSDIE CALL LIGHT INREACH SIDE RAILS UP X 2 PT WITH DISTENDED ABDOMEN BSA HYPOACTIVE X 4 QUADS. NO DISTRESS NOTED
[2017-04-12 08:27] VITALS: BP 105/62
--- NOTE | 2017-04-12 08:35 | NUR ---
PATIENT ALERT IN HIGH [place] POSITION. NO SIGNS OF DISTRESS NOTED. FAMILY AT BEDSIDE. SIDE RAILS UP X2. BED IN LOW POSITION. CALL LIGHT IN REACH.
[2017-04-12 11:39] VITALS: BP 114/69
--- NOTE | 2017-04-12 14:07 | NUR ---
CM REASSESSMENT NOTE: CM SENT REFERRAL FOR A SNF TO [facility]. CRISTAL AT [facility] STATED THEY SPOKE WITH DR. DOWNS OFFICE AND THEY STATED SHE WILL HAVE CHEMO WEEKLY. [facility] STATED THEY COULD NOT TAKE HER DUE TO THE CHEMO. CM CALLED L-TACH AT [facility] AND THEY STATED THEY DO NOT TAKE PATIENTS THAT REQUIRES CHEMO. CM CALLED [facility] AND THEY STATED THEY DO NOT TAKE PATIENTS REQUIRING CHEMO. CM WILL CONTINUE TO FOLLOW PATIENT WITH D/C NEEDS AND PLANS.
--- NOTE | 2017-04-12 15:35 | NUR ---
PT RESTING QUIETLY IN BED, ALARM IN PLACE NA FUNCTIONING PROPERLY. ALL ADLS PER STAFF ASSIST. HAD MORPHINE EARLIER IN THIS SHIFT. CALL LIGHT IN REACH SIDE RAILS UP X 2
[2017-04-12 16:13] VITALS: BP 114/53
[2017-04-12 18:00] VITALS: BP 93/46
--- NOTE | 2017-04-12 19:30 | NUR ---
RECIEVED SHIFT REPORT. PT IS LYING IN BED. ALERT AND ORIENTED AND ABLE TO VERBALIZE NEEDS. IV IS PATENT AND SALINE LOC AT THIS TIME. SCD'S ON. PT REQUIRES SOME ASSISTANCE TURNING IN BED FOR COMFORT AND SKIN CARE. OWENS IS DRAINING URINE BY GRAVITY. PT HAS BEEN UP WITH PHYSICAL THERAPY. PT DENIES ANY PAIN AT THIS TIME. NO NEEDS ARE VERBALIZED AT THIS TIME. WILL CONTINUE TO MONITOR. IS AT THE BEDSIDE. SIDE RAILS ARE UP X 2. BED IS IN LOWEST POSITION. BED ALARM IS ON FOR SAFETY. CALL LIGHT IS WITHIN REACH.
--- NOTE | 2017-04-12 21:30 | NUR ---
SHIFT ASSESSMENT COMPLETED. NIGHT MEDS GIVEN WITH NO PROBLEMS. PT RECIEVED 8 UNITS INSULIN PER SLIDING SCALE FOR [id number]=613. NO NEEDS ARE VOICED. WILL MONITOR. AT BEDSIDE. SIDE RAILS X 2. BED LOW. BED ALARM ON. CALL LIGHT IN REACH.
[2017-04-13] VITALS: BP 98/43
[2017-04-13 04:00] VITALS: BP 106/51
[2017-04-13 05:03] LABS: BASOPHILS 0.4 % (0-2); EOSINOPHILS 2.7 % (0-7); HEMATOCRIT 25.5 % (36.0-48.0); HEMOGLOBIN 8.3 g/dL (12-16); IMMATURE GRANULOCYTES 0.4 % (0-5); LYMPHOCYTES 16.6 % (15-50); MCH 29.5 pg (26.0-34.0); MCHC 32.5 g/dL (31.0-37.0); MCV 90.7 fL (80.0-100.0); MEAN PLATELET VOLUME 9.3 fL (7.4-10.4); MONOCYTES 1.9 % (2-11); PLATELET COUNT 356 10x3/uL (130-400); RBC 2.81 10x6/uL (4.00-5.40); RDW 14.1 % (11.5-14.5); WBC 7.8 10x3/uL (4.8-10.8)
[2017-04-13 05:27] LABS: ANION GAP 11.1 mmol/L (8-16); CALCIUM 7.9 mg/dL (8.5-10.1); CARBON DIOXIDE 26.3 mmol/L (21.0-32.0); CREATININE - SERUM 1.2 mg/dL (0.6-1.3); POTASSIUM - SERUM 4.4 mmol/L (3.5-5.1)
[2017-04-13 08:48] VITALS: BP 98/48
--- NOTE | 2017-04-13 10:45 | NUR ---
PATIENT IS AWAKE, ALERT AND ORIENTED X'S 4. RESPIRATIONS ARE EVEN AND UNLABORED. PATIENT VERBALIZED PAIN IN HER UPPER ABD. PATIENT DENIES FUTHER NEEDS OTHER THEN PAIN MEDICATION. PATIENT IS SITTING UP IN THE CHAIR. CALL LIGHT IN REACH.
[2017-04-13 12:35] VITALS: BP 84/49
[2017-04-13 17:02] VITALS: BP 104/48
--- NOTE | 2017-04-13 19:30 | NUR ---
RECIEVED SHIFT REPORT. PT IS LYING IN BED. ALERT AND ORIENTED AND ABLE TO VERBALIZE NEEDS. IV IS PATENT AND SALINE LOC AT THIS TIME. SCD'S ON. OWENS IS DRAINING URINE BY GRAVITY. PT DENIES ANY PAIN AT THIS TIME. PT HAS BEEN UP WITH PHYSICAL THERAPY. NO NEEDS ARE VERBALIZED AT THIS TIME. WILL CONTINUE TO MONITOR. IS AT THE BEDSIDE. SIDE RAILS ARE UP X 2. BED IS IN LOWEST POSITION. BED ALARM IS ON FOR SAFETY. CALL LIGHT IS WITHIN REACH.
--- NOTE | 2017-04-13 21:32 | NUR ---
SHIFT ASSESSMENT COMPLETED. NIGHT MEDS GIVEN WITH NO PROBLEMS. PT RECIEVED 4 UNITS INSULIN PER SLIDING SCALE FOR DGKR=506. NO NEEDS ARE VOICED. WILL MONITOR. AT BEDSIDE. SIDE RAILS X 2. BED LOW. BED ALARM ON. CALL LIGHT IN REACH.
[2017-04-14 00:04] VITALS: BP 101/38
[2017-04-14 04:00] VITALS: BP 108/50
[2017-04-14 06:18] LABS: INR 1.01 (0.85-1.17); PROTIME 13.1 SECONDS (11.6-15.0)
--- NOTE | 2017-04-14 07:12 | NUR ---
PATIENT RESTING IN THE BED WITH HER EYES CLOSED. NO S'S OF DISTRESS NOTED. SITTING AT THE PATIENT'S BEDSIDE. PATIENT'S DENIES ANY NEEDS AT PRESENT TIME. BED ALARM IN PLACE. CALL LIGHT IN PATIENT'S REACH. WILL MONITOR PATIENT.
[2017-04-14 08:39] VITALS: BP 103/63
--- NOTE | 2017-04-14 11:20 | NUR ---
PATIENT RESTING IN BED WITH HER AT THE BEDSIDE. FSBS IS 248. 4 UNITS OF SLIDING SCALE REGULAR INSULIN GIVEN TO PATIENT. PATIENT TOLERATED WELL. PATIENT DENIES FURTHER NEEDS. CALL LIGHT IN PATIENT'S REACH. WILL MONITOR.
--- NOTE | 2017-04-14 11:23 | NUR ---
RADIOLOGY HERE. PATIENT TRANSFERRED VIA BED TO HAVE A CT GUIDED PARACENTESIS.
--- NOTE | 2017-04-14 13:40 | NUR ---
NUTRITION MONITORING & EVAL CHART REVIEWED. DIET RESUMED AFTER PROCEDURE. WILL ADD AGUSTIN ENSURE BREAKFAST AND DINNER. RD FOLLOWING
--- NOTE | 2017-04-14 16:58 | NUR ---
PATIENT RESTING IN THE BED. AT HER BEDSIDE. FSBS 233. 4 UNITS OF SLIDING SCALE INSULIN GIVEN TO PATIENT IN HER RUQ. PATIENT TOLERATED WELL. DENIES NEEDS AT PRESENT TIME. CALL LIGHT IN PATIENT'S REACH. WILL MONITOR PATIENT.
[2017-04-14 17:30] VITALS: BP 87/40
--- NOTE | 2017-04-14 19:30 | NUR ---
RECIEVED SHIFT REPORT. PT IS LYING IN BED. ALERT AND ORIENTED AND ABLE TO VERBALIZE NEEDS. IV IS PATENT AND SALINE LOC AT THIS TIME. PT HAS BEEN UP WITH PHYSICAL THERAPY. SCD'S ON. OWENS IS DRAINING URINE BY GRAVITY. PT DENIES ANY PAIN AT THIS TIME. DRESSING TO RIGHT LOWER QUADRANT C/D/I. NO NEEDS ARE VERBALIZED AT THIS TIME. IS AT THE BEDSIDE. SIDE RAILS ARE UP X 2. BED IS IN LOWEST POSITION. CALL LIGHT IS WITHIN REACH.
[2017-04-14 20:00] VITALS: BP 93/46
--- NOTE | 2017-04-14 22:05 | NUR ---
SHIFT ASSESSMENT COMPLETED. NIGHT MEDS GIVEN WITH NO PROBLEMS. PT RECIEVED 8 UNITS INSULIN PER SLIDING SCALE FOR WMUY=428. NO NEEDS ARE VOICED. WILL MONITOR. SIDE RAILS X 2. BED LOW. BED ALARM ON. CALL LIGHT IN REACH. AT BEDSIDE.
[2017-04-15] VITALS: BP 111/49
--- NOTE | 2017-04-15 02:10 | NUR ---
PT REST QUIETLY IN BED WITH EYE CLOSE, BED LOW, CALL LIGHT WITHIN REACH.
[2017-04-15 04:00] VITALS: BP 95/45
[2017-04-15 05:34] LABS: BASOPHILS 0.4 % (0-2); EOSINOPHILS 1.5 % (0-7); HEMATOCRIT 25.4 % (36.0-48.0); IMMATURE GRANULOCYTES 0.3 % (0-5); LYMPHOCYTES 14.9 % (15-50); MCH 28.6 pg (26.0-34.0); MCHC 31.5 g/dL (31.0-37.0); MCV 90.7 fL (80.0-100.0); MEAN PLATELET VOLUME 9.2 fL (7.4-10.4); MONOCYTES 4.2 % (2-11); NEUTROPHILS 78.7 % (40-80); PLATELET COUNT 344 10x3/uL (130-400); WBC 7.9 10x3/uL (4.8-10.8)
[2017-04-15 06:07] LABS: ALBUMIN 1.6 g/dL (3.4-5.0); ANION GAP 11.5 mmol/L (8-16); BILIRUBIN - TOTAL 0.81 mg/dL (0.2-1.3); CALCIUM 8.5 mg/dL (8.5-10.1); CARBON DIOXIDE 26.4 mmol/L (21.0-32.0); POTASSIUM - SERUM 4.9 mmol/L (3.5-5.1); PROTEIN - SERUM 5.1 g/dL (6.4-8.2)
--- NOTE | 2017-04-15 07:30 | NUR ---
RECIEVED PT DURING WALKING ROUNDS, PT RESTING IN BED WITH COMPLAINTS OF NAUSEA, WILL ADMINISTER MEDICATION PER ORDER. ASSESSMENT DONE PER FLOWSHEET, BED IN LOW POSITION, SPOUSE AT BEDSIDE, WILL CONTINUE TO BERTO.
[2017-04-15 08:29] VITALS: BP 104/52
[2017-04-15 12:47] VITALS: BP 107/57
[2017-04-15 17:06] VITALS: BP 95/44
[2017-04-15 20:00] VITALS: BP 90/42
--- NOTE | 2017-04-15 20:50 | NUR ---
PT RESTING WITH EYES CLOSED. EASY TO AROUSE. NO SIGNS OF DISTRESS NOTED. SCHEDULED MEDS GIVEN. SHIFT ASSESSMENT COMPLETED. DENIES ANY NEEDS AT THIS TIME. BED LOW. CALL LIGHT IN REACH. AT BED SIDE.
[2017-04-16] VITALS (14 sets, daily range): BP systolic 92–124; BP diastolic 47–68
--- NOTE | 2017-04-16 04:10 | NUR ---
PT RESTING QUIETLY, EYES CLOSED. RESP EVEN, UNLABORED. NO DISTRESS NOTED. CONTINUE ELEPHANT KEEPER'S PLAN OF CARE.
--- NOTE | 2017-04-16 07:30 | NUR ---
RECIEVED PT DURING WALKING ROUNDS. PT RESTING IN BED WITH COMPLAINTS OF PAIN OF A 5 ON A SCALE OF 1-10. MEDICATION TO BE GIVEN PER ORDER. ASSESSMENT DONE PER FLOWSHEET. BED IN LOW POSITION AND CALL LIGHT WITHIN REACH. WILL CONTINUE TO MONITOR.
--- NOTE | 2017-04-16 11:20 | NUR ---
PRE MEDICATION FOR CHEMO GIVEN AT THIS TIME PER ORDER. WILL CONTINUE TO MONITOR.
--- NOTE | 2017-04-16 12:20 | NUR ---
CHEMO STARTED AT THIS TIME BY GIOVANNI SAUNDERS RN, WILL CONTINUE TO MONITOR.
--- NOTE | 2017-04-16 13:20 | NUR ---
PT O2 SAT AT THIS TIME 89%, APPLIED 2L OF O2 AT THIS TIME, WILL CONTINUE TO MONITOR.
--- NOTE | 2017-04-16 14:06 | NUR ---
NUTRITION MONITORING & EVAL CHART REVIEWED, PT VISIT. PT STATES NO BM X 2 WEEKS. NURSING AND MD AWARE. RECEIVING APPROPRIATE. PT DOES STATE THAT SOME TIMES AT HOME SHE MAY GO 5 DAYS BETWEEN BM'S. DIABETIC DIET WITH ~25% INTAKE MOST MEALS. ENSURE BID. SPOUSE STATES HE IS PROVIDING SOME FOOD FROM [facility]IDE [facility]. RD FOLLOWING
--- NOTE | 2017-04-16 22:20 | NUR ---
REC'D PATIENT LYING IN BED. ALERT AND ORIENTED X4. NO DISTRESS NOTED. DENIED PAIN AT THIS TIME. ADMIN PM MEDS PRESCRIBED. WAS NEEDED SOMETHING FOR NAUSA ADMIN THAT WELL. DENIED FURTHER NEEDS AT THIS TIME. INSTRUCTED TO CALL IF NEEDED ANYTHING. VERBALIZED UNDERSTANDING. WILL CONT TO MONITOR. BED LOW, LOCKED, CALL LIGHT IN REACH.
[2017-04-17] VITALS: BP 100/54
--- NOTE | 2017-04-17 03:41 | NUR ---
PATIENT IS RESTING IN BED. NO DISTRESS NOTED. IS AT BEDSIDE. WILL CONT TO MONITOR. BED LOW, LOCKED, CALL LIGHT IN REACH, ALARM ON.
[2017-04-17 04:00] VITALS: BP 105/44
--- NOTE | 2017-04-17 07:30 | NUR ---
RECIEVED PT DURING WALKING ROUNDS. PT RESTING COMFORTABLY IN BED WITH SLIGHT DISCOMFORT AT THIS TIME, REQUUEST NO MEDICATION. ASSESSMENT DONE PER FLOWSHEET. BED IN LOW POSITION AND CALL LIGHT WITHIN REACH. WILL CONTINUE TO MONITOR.
[2017-04-17 09:01] VITALS: BP 102/47
--- NOTE | 2017-04-17 09:40 | NUR ---
WEIGHED PT ON STAND UP SCALE PER FAMILY REQUEST FOR A MORE ACCURATE WEIGHT, PT WEIGHED 136LBS. PATIENT UP WITH PT, WILL CONTINUE TO MONITOR.
--- NOTE | 2017-04-17 11:50 | NUR ---
PT SITTING UP IN CHAIR AND STATES THAT SHE WAS SEEING WOMEN IN HER ROOM JUMPING ON HER BED, WAS ABLE TO REORIENT PT AT THIS TIME. SHE SEEMS VERY NERVOUS AND WORRIED WAS ABLE TO CALM PT AND REORIENT TO CURRENT SITUATION. BATH WAS GIVEN AND PT STATED SHE FELT MORE RELAXED, SPOUSE AT BEDSIDE. BED IN LOW POSITION AND CALL LIGHT WITHIN REACH. WILL CONTINUE TO MONITOR.
[2017-04-17 13:02] VITALS: BP 100/40
--- NOTE | 2017-04-17 15:15 | NUR ---
LYING IN BED,WITHOUT DISTRESS. AT BEDSIDE.
[2017-04-17 17:12] VITALS: BP 95/44
--- NOTE | 2017-04-17 17:23 | NUR ---
STILL SIPPING ON MAG CITRATE.STATES PASSING GAS.BED FLORES TO ATTEMPT BM. AT SIDE.
[2017-04-17 20:00] VITALS: BP 103/52
--- NOTE | 2017-04-17 22:47 | NUR ---
REC'D PATIENT LYING IN BED RESTING. NO DISTRESS NOTED. DENIED PAIN AT THIS TIME. INSTRUCTED TO CALL IF NEEDED ANYTHING. WILL CONT TO MONITOR. WILL ADMIN PM MEDS PRESCRIBED. BED LOW, LOCKED, CALL LIGHT IN REACH.
[2017-04-18] VITALS: BP 100/52
[2017-04-18 04:00] VITALS: BP 108/51
[2017-04-18 08:31] VITALS: BP 94/48
[2017-04-18 12:14] VITALS: BP 97/42
--- NOTE | 2017-04-18 12:17 | NUR ---
ALERT IN BED. NO SIGNS OF DISTRESS NOTED. FAMILY PRESENT. KAR KHAN PRESENT AT BEDSIDE. SIDE RAILS UP X2. BED IN LOW POSITION. CALL LIGHT IN REACH.
[2017-04-18 16:28] VITALS: BP 92/48
--- NOTE | 2017-04-18 19:00 | NUR ---
REC'D IN BED AWAKE AND ALERT. RESP EVEN AND UNLABORED WITH NO DISTRESS NOTED. CAN EXPRESS NEEDS AND WANTS WITH NO VOICED AT THIS TIME. ASSESSMENT COMPLETED. C/L AND AT BEDSIDE.
[2017-04-18 20:00] VITALS: BP 94/47
--- NOTE | 2017-04-18 20:30 | NUR ---
PT REMAIN ON BLADDER TRAINING WITH OWENS CLAMPED OFF AT THIS TIME.
--- NOTE | 2017-04-18 22:30 | NUR ---
OWENS WAS UNCLAMPED AT THIS TIME.
--- NOTE | 2017-04-19 | NUR ---
OWENS CATH WAS CLAMPED BACK OFF AT THIS TIME.
--- NOTE | 2017-04-19 02:00 | NUR ---
PT IN BED WITH NO DISTRESS. RESPIRATIONS EVEN AND UNLABORED. SIDE RAILS X 2. BED LOW. CALL LIGHT IN REACH.
--- NOTE | 2017-04-19 02:30 | NUR ---
ROGER WAS UNCLAMPED AT THIS TIME.
--- NOTE | 2017-04-19 03:00 | NUR ---
OWENS WAS CLAMPED BACK OFF D/T BLADDER TRAINING AT THIS TIME.
[2017-04-19 04:00] VITALS: BP 109/54
--- NOTE | 2017-04-19 05:00 | NUR ---
OWENS UNCLAMPED AT THIS TIME.
--- NOTE | 2017-04-19 05:17 | NUR ---
PT C/O NAUSEA WAS MEDICATED WITH ZOFRAN PER ORDERS. C/L AND AT BEDSIDE.
--- NOTE | 2017-04-19 05:26 | NUR ---
OWENS RECLAMPED AT THIS TIME.
[2017-04-19 08:21] VITALS: BP 107/56
--- NOTE | 2017-04-19 11:14 | NUR ---
AWAKE AND ALERT. ORIENTED X3. NO C/O AT THIS TIME. LUNGS ARE SLIGHTLY DIMINISHED BUT MUCH CLEARER THAN PREVIOUS. REPORTS COUGH IMPROVED WELL. EDEMA NOTED TO BILATERAL LOWER EXTREMETIES.
[2017-04-19 12:05] VITALS: BP 92/41
[2017-04-19 15:57] VITALS: BP 97/42
--- NOTE | 2017-04-19 17:30 | NUR ---
OWENS CATHETER REMOVED AT THIS TIME. PREMEDICATIED WITH PRN MORPHINE PER PT REQUEST. 500CC'S OF CLOUDY URINE EMPTIED FROM COLLECTION BAG. BED LOW, CALL LIGHT IN REACH, DENIES NEEDS. CPOC.
--- NOTE | 2017-04-19 19:45 | NUR ---
REC'D PATIENT LYING IN BED. ALERT AND ORIENTED X4. DENIED PAIN AT THIS TIME. NO DISTRESS NOTED. DENIED FURTHER NEEDS AT THIS TIME. INSTRUCTED TO CALL IF NEEDED ANYTHING. WILL CONT TO MONITOR. WILL ADMIN PM MEDS PRESCRIBED. IS AT BEDSIDE. WAITING ON HER TO VOID AFTER THE OWENS WAS DC AROUND 1800 THIS EVENING. BED LOW, LOCKED, CALL LIGHT IN REACH.
[2017-04-19 20:03] VITALS: BP 97/55
--- NOTE | 2017-04-19 22:48 | NUR ---
PATIENT VOIDING IN BEDSIDE COMMODE AROUND 2200. WILL CONT TO MONTIOR THROUGHOUT THE NIGHT.
--- NOTE | 2017-04-20 02:00 | NUR ---
PT IN BED WITH NO DISTRESS. RESPIRATIONS EVEN AND UNLABORED. AT BEDSIDE. SIDE RAILS X 2. BED LOW. CALL LIGHT IN REACH.
--- NOTE | 2017-04-20 03:20 | NUR ---
PATIENT RESTING IN BED. NO DISTRESS NOTED. DENIED PAIN AT THIS TIME. INSTRUCTED TO CALL IF NEEDED ANYHTING. IS AT BEDSIDE. BED LOW, LOCKED CALL LIGHT IN REACH.
[2017-04-20 04:00] VITALS: BP 94/52
[2017-04-20 05:56] LABS: APTT 33.1 SECONDS (22.8-39.4); INR 0.99 (0.85-1.17)
[2017-04-20 06:01] LABS: BASOPHILS 0.4 % (0-2); EOSINOPHILS 4.2 % (0-7); HEMATOCRIT 24.1 % (36.0-48.0); IMMATURE GRANULOCYTES 0.2 % (0-5); LYMPHOCYTES 22.9 % (15-50); MCH 28.2 pg (26.0-34.0); MCHC 31.1 g/dL (31.0-37.0); MCV 90.6 fL (80.0-100.0); MEAN PLATELET VOLUME 9.1 fL (7.4-10.4); MONOCYTES 1.8 % (2-11); NEUTROPHILS 70.5 % (40-80); PLATELET COUNT 402 10x3/uL (130-400); RBC 2.66 10x6/uL (4.00-5.40); RDW 14.5 % (11.5-14.5); WBC 4.5 10x3/uL (4.8-10.8)
[2017-04-20 06:05] LABS: HEMOGLOBIN 7.5 g/dL (12-16)
--- NOTE | 2017-04-20 07:45 | NUR ---
PT ASSESSMENT COMPLETE ON AM ROUNDS AWAKE AND ALERT ORINETD X 3 LUNGS CLEAR BILATERALLY ABDOMEN DISTENDED AND FIRM BOWEL SOUNDS TYMPANIC X 3 QUADS ABSENT IN RUQ. FOR PARACENTESIS TODAY IN [facility] WILL FLORES.
[2017-04-20 08:25] VITALS: BP 89/57
--- NOTE | 2017-04-20 09:01 | NUR ---
REPORT CALLED FROM [facility] NURSE REMOVED 2 LITERS OF FLUID WILL MONITOR RECOVERY
--- NOTE | 2017-04-20 09:30 | NUR ---
PT AOX4 RESP EVEN AND NONLABORED PT SPOUSE AT BEDSIDE PT HERE FOR ASCITES FOR THIS VISIT. IV TO RIGHT CHEST WALL PORT PATENT AND INTACT SRX2 BED AT LOWEST POSITION WILL CONTINUE TO MONITOR
[2017-04-20 12:04] LABS: LYMPH - BF 70 %; MACROPHAGES BF 5 %
[2017-04-20 12:05] LABS: MESOTHELIALS BF 9 %
[2017-04-20 12:06] LABS: NEUT - BF 16 %
--- NOTE | 2017-04-20 12:36 | NUR ---
PT ASSISTED UP TO BSC WITH ASSIST X 1. UNRESPONSIVE AFTER A COUPLE OF MIN. ROUSES WHEN SHOOK. BACK TO BED WITH ASSIST X 2. RESPONSIVE AND NO COMPLAINTS-STATES I THINK I FEEL ASLEEP. CALL LIGHT IN PLACE
[2017-04-20 13:00] VITALS: BP 87/54
--- NOTE | 2017-04-20 14:04 | NUR ---
CM REASSESSMENT NOTE: PATIENTS SPOUSE HAD DECIDED TO TAKE HER HOME WITH HOME HEALTH BUT HAS NOW DECIDED TO GO TO [facility]. PATIENT HAD ALREADY SIGNED [facility]. REFERRAL HAS BEEN SENT.
--- NOTE | 2017-04-20 14:07 | NUR ---
NUTRITION MONITORING & EVAL CHART REVIEWED, PT VISIT. SPOUSE AT BEDSIDE. PO INTAKE REMAINS POOR. ~25% @ LUNCH. RECEIVING ENSURE BID. +BM CHARTED. WILL CONTINUE TO PROVIDE DIET AND ENSURE. RD FOLLOWING
[2017-04-20 15:07] VITALS: BP 96/62
[2017-04-20 16:30] VITALS: BP 96/47
[2017-04-20 19:00] VITALS: BP 98/47
--- NOTE | 2017-04-20 20:10 | NUR ---
AWAKE,ALERT,NO COMPLAINTS VOICED.ABD DISTENDED AND FIRM. PORT TO RIGHT CHEST INTACT WIHTOUT REDNESS OR EDEMA NOTED. CL IN REACH. AT BEDSIDE.
--- NOTE | 2017-04-21 02:04 | NUR ---
RESTING QUIETLY. NO DISTRESS NOTED.
[2017-04-21 04:00] VITALS: BP 113/46
--- NOTE | 2017-04-21 06:13 | NUR ---
NO CHANGE IN ASSESSMENT. CL IN REACH.
--- NOTE | 2017-04-21 07:30 | NUR ---
RECIEVED PT DURING WALKING ROUNDS. PT RESTING IN BED WITH NO VISABLE SIGNS OF PAIN OR DISCOMFORT AT THIS TIME. ASSESSMENT DONE PER FLOWSHEET. BED IN LOW POSITION AND CALL LIGHT WITHIN REACH. WILL CONTINUE TO MONITOR.
[2017-04-21 07:57] VITALS: BP 106/61
--- NOTE | 2017-04-21 09:40 | NUR ---
CASE MANAGEMENT SPEAKING WITH PT AND SPOUSE AT THIS TIME, PT SEEMS VERY UPSET AND CONCERNED ABOUT CHANGE AND ABOUT LEAVING THE HOSPITAL, SPOKE WITH PT AND CARE TEAM AND WAS ABLE TO CALM PT. BED IN LOW POSITION AND CALL LIGHT WITHIN REACH. WILL CONTINUE TO MONITOR.
--- NOTE | 2017-04-21 10:20 | NUR ---
CM REASSESSMENT NOTE: REC. CALL FROM CRISTAL AT [facility] STATING THEY COULD NOT TAKE HER. CM SPOKE WITH PATIENT AND SPOUSE AND THEY ARE CONSIDERING [facility] AT THIS TIME. CM SPOKE WITH DR. WAY AND AND THEY AGREE. CONSULT WILL BE SENT TO [facility].
[2017-04-21 11:35] VITALS: BP 116/55
--- NOTE | 2017-04-21 11:50 | NUR ---
PORT DRESSING CHANGED AT THIS TIME USING STERILE TECHNIQUE. BED IN LOW POSITION AND CALL LIGHT WITHIN REACH. WILL CONTINUE TO MONITOR.
[2017-04-21 11:51] VITALS: BP 116/55
[2017-04-21 19:00] VITALS: BP 86/45
--- NOTE | 2017-04-21 20:10 | NUR ---
AWAKE,ALERT.NO COMPLAINTS AT THIS TIME. RIGHT PORT INTACT WITHOUT REDNESS OR EDEMA NOTED. ABD DISTENDED AND FIRM. AT BEDSIDE. CL IN REACH.
--- NOTE | 2017-04-22 01:12 | NUR ---
RESTING WITH EYES CLOSED, NO DISTRESS NOTED, FALL PRECAUTIONS IN PLACE, CL IN REACH
[2017-04-22 04:00] VITALS: BP 90/42
--- NOTE | 2017-04-22 06:31 | NUR ---
AWAKE,TEARFUL THIS AM. REMAINS AT BEDSIDE. NO DISTRESS NOTED.CL IN REACH
--- NOTE | 2017-04-22 07:30 | NUR ---
RECIEVED PT DURING WALKING ROUNDS, PT COMPLAINS OF NAUSEA AT THIS TIME, MEDICATION TO BE GIVEN PER ORDER. ASSESSMENT DONE PER FLOWSHEET. BED IN LOW POSITION AND CALL LIGHT WITHIN REACH. WILL CONTINUE TO MONITOR.
[2017-04-22 08:04] VITALS: BP 96/49
--- NOTE | 2017-04-22 10:09 | NUR ---
CALLED REPORT TO MADINA FRANCOIS AT [facility] AT THIS TIME, PT AWAITING TRANSPORT.
--- NOTE | 2017-04-22 10:22 | NUR ---
CM REASSESSMENT NOTE: PATIENT ACCEPTED TO [facility]/ AMBULANCE CALLED. AT BEDSIDE.
--- NOTE | 2017-04-22 10:36 | NUR ---
PT DISCHARGED VIA AMBULANCE AT THIS TIME.
== END 2017-04-22 10:37 | disposition home health service (06) | DRG 755 ==
LOC: D.ER 15:01 → D.PSYCH 17:14 → D.MS 22:51 → D.M2 22:51 → D.MS 04-08 19:59
PROVIDERS: Emergency Medicine; Family Medicine; General Practice; Nurse Practitioner Family; Specialist; ADMIT Family Medicine
PROC: 0W9G3ZZ Drainage of Peritoneal Cavity, Percutaneous Approach (ICD-10-PCS; principal; 2017-04-02)
PROC: 0W9G3ZZ Drainage of Peritoneal Cavity, Percutaneous Approach (ICD-10-PCS; 2017-04-08)
PROC: 05H633Z Insertion of Infusion Device into Left Subclavian Vein, Percutaneous Approach (ICD-10-PCS; 2017-04-08)
PROC: 3E03305 Introduction of Other Antineoplastic into Peripheral Vein, Percutaneous Approach (ICD-10-PCS; 2017-04-16)
DX: C56.9 Malignant neoplasm of unspecified ovary (principal); R44.3 Hallucinations, unspecified; R18.0 Malignant ascites; K74.60 Unspecified cirrhosis of liver; E11.9 Type 2 diabetes mellitus without complications; B37.9 Candidiasis, unspecified; R13.10 Dysphagia, unspecified; R91.8 Other nonspecific abnormal finding of lung field; G93.9 Disorder of brain, unspecified